=== PATIENT | female | born 1990 | race Caucasian/White ===

== ENCOUNTER 2020-09-29 16:00 | Emergency (ER) | payer SELFPAY ==
[2020-09-29 16:04] VITALS: BP 118/71; PULSE 63; RESP 18; TEMP 36.7; O2SAT 100
[2020-09-29] MEDS: IBUPROFEN 600 MG TABLET PO (17:09)
--- NOTE | 2020-09-29 17:45 | ED.GENADULT ---
HPI - General Adult General Chief complaint: Unspecified Stated complaint: Possible Implant Rupture Time Seen by Provider: 09/29/20 16:25 Source: patient and RN notes reviewed Mode of arrival: ambulatory Limitations: no limitations History of Present Illness HPI narrative: Patient is a 29-year-old female who presents with 2 days duration of left lateral breast pain started along the left breast margin now notes pain throughout the breast denies injury or trauma notes history of breast implants does sleep on her abdomen patient had the implants installed in 2016 patient denies any URI symptoms fever chills nausea vomiting presents in no distress has not take anything for her symptoms Related Data Home Medications Medication Instructions Recorded Confirmed alprazolam [Xanax] 09/29/20 fluoxetine [Prozac] mg 09/29/20 lamotrigine [Lamictal] 09/29/20 Allergies Allergy/AdvReac Type Severity Reaction Status Date / Time No Known Allergies Allergy Verified 09/29/20 16:21 Review of Systems Review of Systems: All systems reviewed & are unremarkable except as noted in HPI and below PMFSH Past Medical History Medical History (Updated 09/29/20 @ 17:49 by He Coronado PA-C) Anxiety Surgical History Surgical History (Updated 09/29/20 @ 17:46 by He Coronado PA-C) H/O breast augmentation Exam Narrative: Exam Narrative: GENERAL: Well-appearing, well-nourished, and in no acute distress. HEAD: Normocephalic, atraumatic. EYES: PERRLA and EOMI. ENT: Nares clear, no rhinorrhea or epistaxis. Mucous membranes moist. CHEST: Clear to auscultation. No respiratory distress. No wheezes rales or rhonchi HEART: Regular rate and rhythm. No murmur heard. BREAST: Tenderness of the left lateral breast no deformities noted no erythema no fluctuance EXTREMITIES: Normal range of motion. No edema. SKIN: Warm, dry, no rash. NEURO: No focal deficits. Alert and oriented x3. Cranial nerves II through XII grossly intact PSYCH: Normal mood and affect. Course Course Emergency Course: Patient in the room in no distress aware of case findings treatment plan and diagnosis. Patient in the room in no distress aware of case findings treatment plan and diagnosis agreeing to follow with breast surgeon Consultations Consultation #1: Discussed case with plastic surgeon Dr. Menchaca who will follow patient in clinic Date: 09/29/20 Time: 17:47 Vital Signs Vital signs: Vital Signs Temperature 98.1 F 09/29/20 16:04 Pulse Rate 63 09/29/20 16:04 Respiratory Rate 18 09/29/20 16:04 Blood Pressure 118/71 09/29/20 16:04 Pulse Oximetry 100 09/29/20 16:04 Temperature 98.1 F 09/29/20 16:04 Pulse Rate 63 09/29/20 16:04 Respiratory Rate 18 09/29/20 16:04 Blood Pressure 118/71 09/29/20 16:04 Pulse Oximetry 100 09/29/20 16:04 Medical Decision Making MDM Narrative Medical decision making narrative: Patient presented with breast pain will be referred to plastic surgery provided with reasons to return Vital Signs Vital Signs: Vital Signs Temperature 98.1 F 09/29/20 16:04 Pulse Rate 63 09/29/20 16:04 Respiratory Rate 18 09/29/20 16:04 Blood Pressure 118/71 09/29/20 16:04 Pulse Oximetry 100 09/29/20 16:04 Temperature 98.1 F 09/29/20 16:04 Pulse Rate 63 09/29/20 16:04 Respiratory Rate 18 09/29/20 16:04 Blood Pressure 118/71 09/29/20 16:04 Pulse Oximetry 100 09/29/20 16:04 Discharge Plan Discharge Clinical Impression: Breast pain, left Patient Disposition: Home, Self-Care Condition: Stable Instructions: Antibiotic Form Additional Instructions: Follow-up with breast surgeon by phone tomorrow to set up for reevaluation Cool compresses for symptom relief Return if symptoms worsen or concerns or any increase in redness swelling pain fever over 100.5 or any nausea or vomiting or difficulty breathing Prescriptions: New ibuprofen [IBU] 600 mg tablet 600
[2020-09-29 18:27] VITALS: BP 121/84; PULSE 67; RESP 16; O2SAT 100
== END 2020-09-29 18:29 | disposition home or self-care (01) ==
PROVIDERS: Emergency Provider Emergency Medicine
DX: N64.4 Mastodynia (principal); F41.9 Anxiety disorder, unspecified
CPT/HCPCS: 99283; A9270

== ENCOUNTER 2021-01-03 09:49 | Emergency (ER) | payer SELFPAY ==
--- NOTE | ~2021-01-03 | CT_ITS ---
EXAMINATION: CT soft tissue neck w con DATE: 01/03/2021 12:51 INDICATION: Dysphagia. TECHNIQUE: Computed tomography (CT) of the neck was performed with 75 mL Omnipaque-350 intravenous co ntrast. Automated exposure control and iterative reconstruction technique were employed. The dose-andrea gth product was 282.88 mGy-cm. COMPARISON: Neck CT 04/03/2014 FINDINGS: There is mild emphysema. There is enlargement of the palatine tonsils with heterogeneous at tenuation. There are no pathologically enlarged lymph nodes. The cervical internal carotid arteries a re normal. There is a trace left mastoid effusion. The paranasal sinuses are clear. IMPRESSION: 1. Enlarged palatine tonsils with heterogeneous attenuation, consistent with phlegmon. No drainable a bscess. 2. Mild emphysema. Reviewed, dictated and finalized at location A. IMPRESSION: 1. Enlarged palatine tonsils with heterogeneous attenuation, consistent with ph legmon. No drainable abscess. 2. Mild emphysema.
--- NOTE | ~2021-01-03 | XR_ITS ---
EXAMINATION: XR chest 1V EXAM DATE: 01/03/2021 15:50 INDICATION: Medial chest pain, Had Positive Strep Test Last Sunday . TECHNIQUE: Frontal and lateral projections of the chest obtained and reviewed. There is no prior yevgeniy dy for comparison. FINDINGS: The lungs are clear. There are no pleural effusions. The cardiomediastinal silhouette is within normal limits. There is no pneumothorax suspected. The bones and soft tissues are unremarkab le. Contrast within renal collecting system. IMPRESSION: Normal chest x-ray exam. Reviewed, dictated and finalized at location B. IMPRESSION: Normal chest x-ray exam.
[2021-01-03 10:52] VITALS: BP 136/87; PULSE 100; RESP 20; TEMP 36.6; O2SAT 100
--- NOTE | 2021-01-03 10:53 | ED.GENADULT ---
HPI - General Adult General Chief complaint: Unspecified Stated complaint: Strep Throat not improving Time Seen by Provider: 01/03/21 10:44 History of Present Illness HPI narrative: Patient is a 30-year-old female otherwise healthy who comes into the ED today complaining of a sore throat. Patient reports that symptoms started last week, she was seen at urgent care and was diagnosed with strep throat clinically (not get tested) was started on Augmentin which she has been compliant with. However symptoms seem to be worsening and she is having significant pain with swallowing since yesterday, pain with opening her mouth, seems like her voice is changed since yesterday. She denies any fevers but admits to chills and feeling lightheaded. Related Data Home Medications Medication Instructions Recorded Confirmed alprazolam [Xanax] 09/29/20 fluoxetine [Prozac] mg 09/29/20 lamotrigine [Lamictal] 09/29/20 amoxicillin-pot clavulanate 1 tablet BID 01/03/21 Allergies Allergy/AdvReac Type Severity Reaction Status Date / Time No Known Allergies Allergy Verified 01/03/21 10:36 Review of Systems Constitutional: Constitutional: Reports as per HPI, Denies fever(s), Denies night sweats and Denies weakness ENT: Reports sore throat Comments: See HPI Cardiovascular: Cardiovascular: Denies chest pain, Denies edema, Denies leg edema, Denies dyspnea and Denies orthopnea Respiratory: Respiratory: Denies cough and Denies dyspnea Gastrointestinal: Gastrointestinal: Denies abdominal pain, Denies constipation, Denies diarrhea, Denies nausea and Denies vomiting Musculoskeletal: Musculoskeletal: Denies abnormal gait, Denies back pain, Denies numbness and Denies tingling Neurologic: Denies Abnormal speech present, Denies abnormal gait, Denies numbness, Denies tingling and Denies weakness Psychiatric: Psychiatric: Denies homicidal ideation and Denies suicidal ideation [facility] Past Medical History Medical History (Updated 01/03/21 @ 18:39 by Emery Sears PA-C) Anxiety Surgical History Surgical History (Updated 09/29/20 @ 17:46 by He Coronado PA-C) H/O breast augmentation Exam Const: General: cooperative, healthy appearing, comfortable, no acute distress, well developed, alert, awake and Physically active Orientation/consciousness: patient oriented x3 HENMT: Head: normal to inspection, normocephalic and atraumatic Ears: external ears normal General nose exam: Normal external nose present Mouth: Yes Normal oral and palatal mucosa present Teeth and gingiva: dentition normal Throat: uvula midline, abnormal tonsil (2+ tonsillar edema bilaterally with exudates) bilateral, uvula not displaced and uvular edema (Very minimal uvular edema) Other: Tender anterior cervical lymphadenopathy bilaterally. No submental edema or tenderness, floor of mouth is soft with no edema/induration and no tongue elevation. Peritonsillar edema around the left tonsil. Uvula midline. Eyes: Pupils: Equal, round and reactive pupils present EOM: EOMs intact bilaterally Neck: Neck: full ROM, lymphadenopathy noted and lymphadenopathy Chest: Chest palpation & inspection: normal inspection of the chest and no tenderness Resp: Effort & Inspection: normal respiratory effort and able to speak in complete sentences Auscultation: clear to auscultation bilaterally Cardio: Rate: regular rate Rhythm: regular rhythm GI: Inspection: normal to inspection GI Palp: No abdominal tenderness : General: Yes no CVA tenderness Back/Spine/Pelvis: Back: no CVA tenderness Skin: General skin exam: normal color and no rashes or lesions noted Lesions: no lesions Neuro: General: patient oriented x3, no focal motor deficits and CN's II-XI intact bilaterally Cranial nerves: Yes Equal, round and reactive pupils present Speech: No Abnormal speech present Extrem: General: normal to inspection and full ROM Psych: Appearance: grossly normal and well kempt M
[2021-01-03] MEDS: LACTATED RINGERS 1,000 ML 999 ML IV CONT (12:05)
[2021-01-03] MEDS: KETOROLAC 15 MG/ML VIAL (*BKC) IV PUSH ×2 (12:05→17:47)
[2021-01-03] MEDS: LIDOCAINE HCL 2% VISC SOLN 15 ML UDC PO (12:06)
[2021-01-03 12:21] LABS: Basophils Absolute Auto 0.1 K/mm3 (0.0-0.1); Basophils Percent Auto 0.3 % (0.2-1.2); Hematocrit 40.6 % (37.0-47.0); Immature Granulocyte Absolute 0.15 K/mm3 (0.00-0.031); Immature Granulocyte Percent A 0.7 % (0-0.5); Lymphocytes Absolute Auto 0.89 K/mm3 (0.9-3.2); Lymphocytes Percent Auto 3.9 % (18.3-44.2); Mean Corpuscular Hemoglobin 28.7 pg (26-34); Mean Corpuscular Volume 89.6 fl (80-100); Mean Platelet Volume 9.7 fl (7.4-10.4); Monocytes Absolute Auto 1.8 K/mm3 (0.1-0.6); Monocytes Percent Auto 7.9 % (2.6-8.5); Neutrophils Percent Auto 87.2 % (45.5-73.1); Platelet Count Result 267 k/mm3 (150-375); Red Blood Count 4.53 M/mm3 (4.2-5.4); Red Cell Distribution Width 14.2 % (11.5-14.5); White Blood Count 22.9 K/mm3 (4.5-10.0)
[2021-01-03 12:36] LABS: Alanine Aminotransferase 16 U/L (4-35); Albumin Level 4.4 g/dL (3.5-5.1); Alkaline Phosphatase 58 U/L (38-126); Anion Gap 10 mmol/L (8-16); Aspartate Amino Transferase 29 U/L (14-36); Bilirubin,Total 0.5 mg/dL (0.2-1.3); Blood Urea Nitrogen 12 mg/dL (7-17); Calcium 9.1 mg/dL (8.4-10.2); Carbon Dioxide 23 mmol/L (22-30); Chloride 104 mmol/L (98-107); Estimated CRCL calculation 100 ml/min; Estimated Glomerular Filt Rate > 60; Glucose 101 mg/dL (65-110); Potassium 4.3 mmol/L (3.4-5.0); Sodium 137 mmol/L (137-145)
[2021-01-03] MEDS: ONDANSETRON INJ 4 MG/2 ML VIAL IV PUSH (13:51)
[2021-01-03] MEDS: MORPHINE SULFATE (*CRX) 4 MG/ML INJ IV PUSH (13:51)
[2021-01-03 14:02] LABS: Lactic Acid Reflex 0.6 mmol/L (0.7-2.1)
--- NOTE | 2021-01-03 15:22 | ECG_ITS ---
Measurements Intervals [place] Rate: 71 P: 9 [place]: 141 QRS: 14 QRSD: 98 T: 54 QT: 376 QTc: 410 Interpretive Statements SINUS RHYTHM INCOMPLETE RIGHT BUNDLE BRANCH BLOCK BORDERLINE ECG Electronically Signed On 01-03-2021 15:33:46 CDT by Dakota Alejandro D.O.
--- NOTE | 2021-01-03 15:22 | PC.NURSE ---
Pt having sudden onset midsternal to left sided chest pain, EKG ordered per ADRIANA Sears.
[2021-01-03 15:26] LABS: Monoscreen Negative (Negative); Negative Monotest Control Negative (Negative); Positive Monotest Control Positive (Positive)
[2021-01-03 16:30] VITALS: BP 115/73; PULSE 76; RESP 20; TEMP 36.9; O2SAT 100
[2021-01-03] MEDS: LIDO 1%/EPINEPHRINE 1:100,000 20 ML VIAL (18:06)
--- NOTE | 2021-01-03 18:27 | WPDCN ---
Assessment and Plan Assessment and plan (1) Abscess, peritonsillar: Code(s): J36 - Peritonsillar abscess Status: Acute Assessment and Plan: Recommend discharging on a steroid taper, following up with me in two weeks given multiple throat infections for years, consider switching from augmentin to clindamycin, pt advised to re present in ER with any worsening. She should feel better withing 24-48 hours. HPI Data of Consult Date/Time: 01/03/21 18:27 Primary Care Provider: [employer] Consult Narrative Narrative: Jeni Rodriguez is a 30 year old female with a history of sore throat. CT demonstrates obvious tonsillitis. Per my read left sided luis tonsillar process. Pt on augmentin x3 days with worsening. WBC elevated. Review of Systems Constitutional: Constitutional: Denies fatigue, Denies fever(s) and Denies lethargy Eyes: Eyes: Denies blurry vision and Denies change in vision ENT: Reports as per HPI Cardiovascular: Cardiovascular: Denies chest pain Respiratory: Respiratory: Denies cough Endocrine: Endocrine: Denies fatigue Hematologic/Lymphatic: Hematologic/Lymphatic: Denies easy bleeding, Denies easy bruising and Denies lymphadenopathy Allergic/Immunologic: Allergic/Immunologic: Denies seasonal rhinorrhea [facility] Past Medical History Medical History (Updated 01/03/21 @ 18:34 by Chemo Kent MD) Anxiety Surgical History Surgical History (Updated 09/29/20 @ 17:46 by He Coronado PA-C) H/O breast augmentation Meds Home Medications and Allergies Home Medications Medication Instructions Recorded Confirmed Type alprazolam [Xanax] 09/29/20 History fluoxetine [Prozac] mg 09/29/20 History ibuprofen [IBU] 600 mg PO TID PRN #7 tablet 09/29/20 Rx lamotrigine [Lamictal] 09/29/20 History amoxicillin-pot clavulanate 1 tablet BID 01/03/21 History Allergies Allergy/AdvReac Type Severity Reaction Status Date / Time No Known Allergies Allergy Verified 01/03/21 10:36 Vital Signs Vital Signs - 24 hr 01/03/21 10:52 01/03/21 16:30 Temperature 36.6 C 36.9 C Pulse Rate 100 76 Respiratory Rate 20 20 Blood Pressure 136/87 115/73 Pulse Oximetry 100 100 Exam Const: General: cooperative, healthy appearing, comfortable, well developed and alert Other: exudates, 3+, left peritonsillar edema HENMT: Head: normal to inspection, normocephalic and atraumatic Ears: hearing grossly normal bilaterally, external ears normal, TM's normal bilaterally and EAC's normal General nose exam: Normal external nose present, Normal nares present, No nasal polyps present, Normal nasal mucous membranes and turbinates present and Normal septum present Face and sinus: normal facial exam Mouth: Yes Normal oral and palatal mucosa present, Yes lip normal, Yes tongue normal, Yes oropharynx normal and Yes moist mucous membranes Teeth and gingiva: dentition normal and gingiva normal Throat: posterior oropharynx abnormal, tonisls abnormal and uvula not midline Eyes: General: appearance normal, both eyes and all related structures Periorbital: periorbital findings normal Eyelids: eyelids normal Conjunctivae: conjunctivae normal Sclera: sclerae normal Neck: Neck: normal visual inspection, full ROM and no lymphadenopathy Thyroid: thyroid normal Lymphatic: no lymphadenopathy noted Resp: Effort & Inspection: normal respiratory effort and able to speak in complete sentences Cardio: Jugular venous distension: no JVD Neuro: Cranial nerves: Yes CN's II-XII intact bilaterally Results Labs CBC & Chem 7: 01/03/21 12:07 01/03/21 12:07 Labs: Short CBC 01/03/21 Range/Units 12:07 WBC 22.9 H (4.5-10.0) K/mm3 Hgb 13.0 (12.0-15.0) g/dL Hct 40.6 (37.0-47.0) % Plt Count 267 (150-375) k/mm3 [facility] 01/03/21 12:07 Sodium 137 Potassium 4.3 Chloride 104 Carbon Dioxide 23 BUN 12 Creatinine 0.70 Glucose 101 Calcium 9.1 Liver Funct
--- NOTE | 2021-01-03 18:37 | WPDPROCEDUR ---
Procedures Abscess I/D Site: oral (bilateral luis tonsillar) Side (if applicable): left and right Anesthetic used: lidocaine 1% (with) Technique: needle aspiration and incised with #11 blade Amount of fluid (mL): 2 Irrigation: No Packing used?: none Complications: pain Comments: left purulence and stones in the peritonsillar space, right with scant turbid fluid
[2021-01-03] MEDS: oxyCODONE/ACETAMINOPHEN (*CRX) 5-325 MG TABLET 2 TABLET PO (18:48)
[2021-01-03 19:09] VITALS: BP 123/70; PULSE 78; RESP 18; O2SAT 99
== END 2021-01-03 19:10 | disposition home or self-care (01) ==
PROVIDERS: Physician Assistant Medical; Emergency Provider Emergency Medicine
DX: J36 Peritonsillar abscess (principal); F41.9 Anxiety disorder, unspecified
CPT/HCPCS: 36415; 42700; 70491; 71045; 80053; 81025; 83605; 85025; 86308; 87081; 87880; 93005; 96361; 96365; 96375; 96376; 99284; A9270; J0696; J1100; J1885; J2270; J2405; J7120; Q9967

== ENCOUNTER 2023-01-23 11:09 | Emergency (ER) | payer MEDICAID, SELFPAY ==
--- NOTE | ~2023-01-23 | CT_ITS ---
EXAMINATION: CT abdomen pelvis w con DATE: 01/23/2023 14:03 INDICATION: Abdominal pain. Elevated liver function tests. TECHNIQUE: Computed tomography (CT) of the abdomen and pelvis was performed with 100 cc Omnipaque 350 intravenous contrast. The dose-length product was 188.12 mGy-cm. Automated exposure control and iterative reconstruction technique were employed. COMPARISON: None. FINDINGS: Lung bases unremarkable. Heart size normal. There are breast implants. No significant pleur al or pericardial effusion. No significant vascular abnormality. No lymphadenopathy. No free air or f ree fluid. Gallbladder not identified, possibly surgically absent. There is mild prominence of the bi le ducts. The spleen, pancreas, adrenal glands and kidneys are unremarkable. Nonobstructive bowel pat tern. No abnormal pelvic masses or fluid collections. IMPRESSION: 1. Mild prominence of the bile ducts, likely secondary to prior cholecystectomy. Clinically correlate . No obstructing stone or mass identified. Reviewed, dictated and finalized at location L. IMPRESSION: 1. Mild prominence of the bile ducts, likely secondary to prior cholecystectomy . Clinically correlate. No obstructing stone or mass identified.
[2023-01-23 11:11] VITALS: BP 135/75; PULSE 72; RESP 20; TEMP 36.7; O2SAT 98
[2023-01-23 12:22] LABS: Basophils Percent Auto 0.4 % (0.2-1.2); Eosinophils Percent Auto 0.2 % (0-4.4); Hematocrit 38.2 % (37.0-47.0); Hemoglobin 12.3 g/dL (12.0-15.0); Immature Granulocyte Absolute 0.02 K/mm3 (0.00-0.031); Immature Granulocyte Percent A 0.2 % (0-0.5); Lymphocytes Absolute Auto 1.31 K/mm3 (0.9-3.2); Lymphocytes Percent Auto 14.4 % (18.3-44.2); Mean Corpuscular HGB Conc 32.2 g/dl (32-36); Mean Corpuscular Hemoglobin 27.8 pg (26-34); Mean Corpuscular Volume 86.2 fl (80-100); Mean Platelet Volume 9.2 fl (7.4-10.4); Monocytes Absolute Auto 0.7 K/mm3 (0.1-0.6); Monocytes Percent Auto 7.1 % (2.6-8.5); Neutrophils Absolute Auto 7.1 K/mm3 (1.3-6.7); Neutrophils Percent Auto 77.7 % (45.5-73.1); Platelet Count Result 299 k/mm3 (150-375); Red Blood Count 4.43 M/mm3 (4.2-5.4); Red Cell Distribution Width 13.2 % (11.5-14.5); White Blood Count 9.1 K/mm3 (4.5-10.0)
[2023-01-23 12:23] LABS: Appearance Urine Clear (Clear); Bilirubin Urine Negative (Negative); Blood Urine 1+ (Negative); Color Urine Yellow (Yellow); Glucose Urine UA Negative (Negative); Ketones Urine Negative (Negative); Leukocyte Esterase Ur Negative LEU/UL (Negative); Nitrate Urine Negative (Negative); Protein Urine Negative (Negative); Urobilinogen Urine 0.2 mg/dL (<2.0); pH Urine 7.5 (5.0-9.0)
[2023-01-23 12:29] LABS: Bacteria Urine None Seen /hpf; Non Pathogenic Casts 0-2; RBC Urine 0-2 /hpf (0-2); Squamous Epithelial Cell Urine None seen /hpf (Few); WBC Urine 0-5 /hpf
[2023-01-23 12:31] LABS: Alanine Aminotransferase 258 U/L (6-35); Albumin Level 4.2 g/dL (3.5-5.1); Alkaline Phosphatase 70 U/L (38-126); Anion Gap 6 mmol/L (8-16); Aspartate Amino Transferase 438 U/L (14-36); Bilirubin,Total 0.9 mg/dL (0.2-1.3); Blood Urea Nitrogen 9 mg/dL (7-17); Calcium 8.9 mg/dL (8.4-10.2); Carbon Dioxide 27 mmol/L (22-30); Chloride 105 mmol/L (98-107); Estimated CRCL calculation 69 ml/min; Estimated Glomerular Filt Rate > 60; Glucose 91 mg/dL (65-110); Lipase 255 U/L (23-300); Sodium 138 mmol/L (137-145)
[2023-01-23 12:42] LABS: Add Urine Microscopic? YES
--- NOTE | 2023-01-23 13:24 | ED.ABDPAIN ---
HPI - Abdominal Pain General Chief Complaint: Abdominal Pain Stated Complaint: abd pain Time Seen by Provider: 01/23/23 12:57 History of Present Illness HPI narrative: Patient is a 32-year-old female s/p cholecystectomy 2 years ago here with abdominal pain. She notes that she has had some nausea and decreased appetite over the last 1 week. Last night around 3:00 a.m. the morning she was woken up from her sleep for upper abdominal pain. She notes that it seems to radiate up into her chest and associated with nausea and a couple episodes of emesis. She notes that she has had no blood in her vomit. She notes diaphoresis when she was vomiting however denies any fever. She denies any urinary symptoms or vaginal discharge. She is currently on her menstrual cycle. She denies any cough or congestion. No prior cardiac history. Related Data Home Medications Medication Instructions Recorded Confirmed alprazolam 0.25 mg tablet (Xanax) 09/29/20 fluoxetine 40 mg capsule (Prozac) mg 09/29/20 lamotrigine 200 mg tablet 09/29/20 (Lamictal) amoxicillin 875 mg-potassium 1 tablet BID 01/03/21 clavulanate 125 mg tablet Allergies Allergy/AdvReac Type Severity Reaction Status Date / Time No Known Allergies Allergy Verified 01/03/21 10:36 Review of Systems Review of Systems: All systems reviewed & are unremarkable except as noted in HPI and below PMFSH Past Medical History Medical History (Updated 01/23/23 @ 14:22 by Margie Garcia MD) Anxiety Surgical History Surgical History (Updated 09/29/20 @ 17:46 by He Coronado, PAJerilyn) H/O breast augmentation Exam Narrative: GENERAL: Well-appearing, well-nourished, and in no acute distress. HEAD: Normocephalic, atraumatic. EYES: PERRLA and EOMI. ENT: Nares clear. Mucous membranes moist. NECK: Supple. CHEST: Clear to auscultation. No respiratory distress. HEART: Regular rate and rhythm. Normal peripheral pulses. ABDOMEN: Soft, Epigastric tenderness with voluntary guarding, no rebound. Negative joel's sign, no McBurney tenderness. nondistended. EXTREMITIES: Normal range of motion. No edema. SKIN: Warm, dry, no rash. NEURO: No focal deficits. Alert and oriented x3. PSYCH: Normal mood and affect. Course Course Emergency Course: Chart review performed. Patient here for upper abdominal pain, nausea and vomiting. Triage vitals normal. Triage lab work shows no leukocytosis, elevated LFTs. Will order CT abdomen pelvis, pepcid, antiemetics, IVF. CT consistent with status post cholecystectomy, no other finding. Will add on hepatitis panel however elevated LFTs could be attributed to her episodes of emesis. EKG has additionally been ordered. No cardiac risk factors. I do not feel any further cardiac workup is indicated. Anticipate discharge. Patient has had symptom resolution with GI cocktail. Will prescribe Carafate, Protonix, Zofran and refer her to Dr. Reinoso's office for follow up. The results of pertinent diagnostic studies and exam findings were discussed. The patient?s provisional diagnosis and plan of care were discussed with the patient and present family. The patient and/or present family expressed understanding of the diagnosis and plan. The nurse was instructed to provide written instructions and appropriate follow-up information. The patient understands their need and responsibility to obtain additional follow-up as instructed. The risks of medications administered and prescribed were discussed with the patient and family present. Vital Signs Vital signs: Vital Signs Temperature 98.1 F 01/23/23 11:11 Pulse Rate 72 01/23/23 11:11 Respiratory Rate 20 01/23/23 11:11 Blood Pressure 135/75 01/23/23 11:11 Pulse Oximetry 98 01/23/23 11:11 Oxygen Delivery Room Air 01/23/23 11:11 Temperature 98.3 F 01/23/23 17:17 Pulse Rate 55 L 01/23/23 17:17 Respiratory Rate 18 01/23/23 17:17 Blood Pressure
[2023-01-23] MEDS: ONDANSETRON INJ 4 MG/2 ML VIAL IV PUSH (13:51)
[2023-01-23] MEDS: SODIUM CHLORIDE 0.9% IV 1,000 ML 999 ML IV CONT (13:51)
[2023-01-23] MEDS: PANTOPRAZOLE SODIUM IV 40 MG VIAL IV PUSH (13:51)
--- NOTE | 2023-01-23 14:19 | ECG_ITS ---
Measurements Intervals [place] Rate: 50 P: 36 [place]: 142 QRS: -4 QRSD: 88 T: 37 QT: 432 QTc: 397 Interpretive Statements SINUS BRADYCARDIA WITH SINUS ARRHYTHMIA LOW QRS VOLTAGE IN PRECORDIAL LEADS [QRS DEFLECTION < 1.0 mV IN CHEST LEADS] COMPARED TO ECG 01/03/2021 15:25:21 SINUS BRADYCARDIA NOW PRESENT SINUS ARRHYTHMIA NOW PRESENT Electronically Signed On 01-23-2023 16:36:28 CDT by Arlene Bah M.D.
[2023-01-23] MEDS: BELLADONNA ALK/PHENOB ELIX 10 ML, MAG HYDROX/ALUMINUM HYD/SIMETH 30 ML, LIDOCAINE HCL 2... PO (15:49)
[2023-01-23] MEDS: MORPHINE SULFATE (*CRX) 4 MG/ML INJ IV PUSH (15:50)
[2023-01-23 16:45] LABS: Hepatitis B Surface Antigen Negative (Negative)
[2023-01-23 16:50] LABS: HAV RESULT Negative (Negative); Hepatitis B Core IgM Result Negative (Negative)
[2023-01-23 17:02] LABS: Hepatitis C Virus Antibody Negative (Negative)
[2023-01-23 17:17] VITALS: BP 120/88; PULSE 55; RESP 18; TEMP 36.8; O2SAT 98
== END 2023-01-23 17:33 | disposition home or self-care (01) ==
PROVIDERS: Emergency Medicine; Emergency Provider Student in an Organized Health Care Education/Training Program
DX: R10.13 Epigastric pain (principal); R74.01 Elevation of levels of liver transaminase levels; F41.9 Anxiety disorder, unspecified; Z90.49 Acquired absence of other specified parts of digestive tract; R00.1 Bradycardia, unspecified
CPT/HCPCS: 36415; 74177; 80053; 80074; 81001; 81025; 83690; 85025; 93005; 96361; 96374; 96375; 99284; A9270; C9113; J2270; J2405; J7030; Q9967

== ENCOUNTER 2023-01-30 10:25 | Outpatient (CLI) | payer MEDICAID, SELFPAY ==
[2023-01-30 11:26] LABS: Alanine Aminotransferase 85 U/L (6-35); Albumin Level 4.6 g/dL (3.5-5.1); Alkaline Phosphatase 57 U/L (38-126); Anion Gap 8 mmol/L (8-16); Aspartate Amino Transferase 23 U/L (14-36); Bilirubin,Total 0.6 mg/dL (0.2-1.3); Blood Urea Nitrogen 15 mg/dL (7-17); Calcium 9.3 mg/dL (8.4-10.2); Carbon Dioxide 27 mmol/L (22-30); Chloride 101 mmol/L (98-107); Cholesterol 166 mg/dL (0-200); Estimated Glomerular Filt Rate > 60; Glucose 99 mg/dL (65-110); HDL Direct 51 mg/dL; Potassium 3.9 mmol/L (3.4-5.0); Sodium 136 mmol/L (137-145); Triglycerides 41 mg/dL (<150)
[2023-01-30 11:37] LABS: LDL Cholesterol Direct 91 mg/dL
[2023-01-30 11:55] LABS: Thyroid Stimulating Hormone 0.642 uIU/mL (0.465-4.680)
[2023-01-30 12:06] LABS: Free T4 Free Thyroxine 1.28 ng/mL (0.78-2.19)
[2023-01-30 15:13] LABS: Appearance Urine Cloudy (Clear); Bacteria Urine 1+ /hpf; Bilirubin Urine Negative (Negative); Blood Urine Negative (Negative); Color Urine Yellow (Yellow); Glucose Urine UA Negative (Negative); Ketones Urine 1+ mg/dL (Negative); Leukocyte Esterase Ur Negative LEU/UL (NEGATIVE); Nitrate Urine Negative (Negative); Non Pathogenic Casts 0-2; Protein Urine Negative (Negative); RBC Urine 0-2 /hpf (0-2); Specific Grav Ur 1.022 (1.001-1.035); Squamous Epithelial Cell Urine Moderate /hpf (Few); Urobilinogen Urine 0.2 mg/dL (<2.0)
[2023-01-30 15:34] LABS: Add Urine Microscopic? YES
== END 2023-01-30 10:26 | disposition home or self-care (01) ==
PROVIDERS: Visit Provider Emergency Medicine
DX: R10.9 Unspecified abdominal pain (principal); F32.9 Major depressive disorder, single episode, unspecified; R94.5 Abnormal results of liver function studies
CPT/HCPCS: 36415; 80053; 80061; 81001; 82306; 84439; 84443

== ENCOUNTER 2023-05-25 09:42 | Emergency (ER) | payer MEDICAID, SELFPAY ==
--- NOTE | ~2023-05-25 | XR_ITS ---
EXAMINATION: XR chest 2V DATE: 05/25/2023 10:34 INDICATION: Shortness of breath and cough TECHNIQUE: PA and lateral views of the chest are obtained. COMPARISON: 01/03/2021 FINDINGS: The lungs are free of acute opacities. No pleural effusion or pneumothorax. The cardiomedia stinal silhouette is normal. The visualized bones are unremarkable. There are bilateral breast implan ts. IMPRESSION: 1. No acute cardiopulmonary abnormality. Reviewed, dictated and finalized at location B. [facility]
--- NOTE | 2023-05-25 09:43 | ECG_ITS ---
Measurements Intervals [place] Rate: 102 P: 74 [place]: 129 QRS: 5 QRSD: 80 T: 57 QT: 328 QTc: 428 Interpretive Statements SINUS TACHYCARDIA POSSIBLE LEFT ATRIAL ENLARGEMENT [-0.1mV P WAVE IN V1/V2] POSSIBLE RIGHT VENTRICULAR CONDUCTION DELAY [RSR (QR) IN V1/V2] NONSPECIFIC ST AND T-WAVE ABNORMALITY ABNORMAL ECG COMPARED TO ECG 01/23/2023 15:24:13 SINUS TACHYCARDIA NOW PRESENT Electronically Signed On 05-26-2023 10:16:43 [employer] by Beni Marcelino M.D.
[2023-05-25 09:50] VITALS: BP 123/78; PULSE 104; TEMP 36.6
[2023-05-25 09:53] VITALS: PULSE 105; RESP 18; O2SAT 99
[2023-05-25 10:07] LABS: Hematocrit 43.1 % (37.0-47.0); Hemoglobin 13.5 g/dL (12.0-15.0); Mean Corpuscular HGB Conc 31.3 g/dl (32-36); Mean Corpuscular Hemoglobin 26.8 pg (26-34); Mean Corpuscular Volume 85.5 fl (80-100); Mean Platelet Volume 9.7 fl (7.4-10.4); Platelet Count Result 196 k/mm3 (150-375); Red Blood Count 5.04 M/mm3 (4.2-5.4); Red Cell Distribution Width 13.5 % (11.5-14.5); White Blood Count 3.9 K/mm3 (4.5-10.0)
[2023-05-25 10:20] VITALS: O2SAT 99
[2023-05-25 10:21] LABS: Alanine Aminotransferase 25 U/L (6-35); Albumin Level 4.6 g/dL (3.5-5.1); Alkaline Phosphatase 60 U/L (38-126); Anion Gap 11 mmol/L (8-16); Aspartate Amino Transferase 33 U/L (14-36); Bilirubin,Total 0.3 mg/dL (0.2-1.3); Blood Urea Nitrogen 6 mg/dL (7-17); Calcium 9.5 mg/dL (8.4-10.2); Carbon Dioxide 23 mmol/L (22-30); Chloride 106 mmol/L (98-107); Estimated CRCL calculation 78 ml/min; Estimated Glomerular Filt Rate > 60; Glucose 108 mg/dL (65-110); Potassium 3.9 mmol/L (3.4-5.0); Sodium 140 mmol/L (137-145)
[2023-05-25 10:24] VITALS: BP 124/88; PULSE 104; PULSE 88; RESP 19; O2SAT 100
[2023-05-25 10:38] LABS: Atypical Lymphocytes Present; Band Neutrophils Percent 1 % (0-6); Basophils Absolute Manual 0.03 K/mm3 (0.0-0.1); Basophils Percent Manual 1 % (0-1); Lymphocytes Absolute Manual 1.67 K/mm3 (1.1-4.5); Monocytes Absolute Manual 0.78 K/mm3 (0.1-0.90); Monocytes Percent Manual 20 % (3-9); Neutrophils Percent Manual 35 % (46-73); Platelet Estimate Adequate (Adequate); Schistocytes None Seen (NORMAL); Total Cells Counted 100
[2023-05-25 10:43] LABS: Influenza A QL RT-PCR Negative (Negative); Influenza B QL RT-PCR Positive (Negative); RSV RNA, RT-PCR Negative (Negative); SARS-CoV-2 RNA PCR Negative (Negative)
[2023-05-25 11:09] VITALS: BP 116/84; PULSE 88; RESP 28; O2SAT 100
[2023-05-25 12:01] VITALS: BP 104/73; PULSE 88; RESP 26; TEMP 37.2; O2SAT 98
--- NOTE | 2023-05-25 12:25 | ED.SOB ---
HPI - SOB/Dyspnea General Chief Complaint: Shortness of Breath/Dyspnea Stated Complaint: headache, congestion, congestion Time Seen by Provider: 05/25/23 11:40 Source: patient Mode of arrival: ambulatory Limitations: no limitations History of Present Illness HPI Narrative: This is a 32-year-old female that presents to the emergency department for chest congestion. Reports she was seen at urgent care about a week ago and diagnosed with strep throat. She has been taking antibiotics as prescribed. Starting on Sunday she developed fever, headache, chest congestion. Reports some associated shortness of breath. Denies chest pain or lower extremity edema. Related Data Home Medications Medication Instructions Recorded Confirmed alprazolam 0.25 mg tablet (Xanax) 09/29/20 fluoxetine 40 mg capsule (Prozac) mg 09/29/20 lamotrigine 200 mg tablet 09/29/20 (Lamictal) amoxicillin 875 mg-potassium 1 tablet BID 01/03/21 clavulanate 125 mg tablet Allergies Allergy/AdvReac Type Severity Reaction Status Date / Time No Known Allergies Allergy Verified 01/03/21 10:36 Review of Systems Review of Systems: CONSTITUTIONAL: Reports fever ENT: Reports rhinorrhea, congestion, sore throat CARDIOVASCULAR: Denies chest pain, or edema. RESPIRATORY: Reports cough and dyspnea. All systems reviewed & are unremarkable except as noted in HPI and below PMFSH Past Medical History Medical History (Updated 05/25/23 @ 12:26 by Ashleigh Moreno PA-C) Anxiety Surgical History Surgical History (Updated 09/29/20 @ 17:46 by He Coronado, JULIO CESAR) H/O breast augmentation Social History Social History (Updated 05/25/23 @ 12:29 by Ashleigh Moreno PA-C) Smoking status: Current every day smoker Tobacco type: e-cigarettes/vaping Substance use: current Substance use type: marijuana Exam Narrative: GENERAL: Well-appearing, well-nourished, and in no acute distress. HEAD: Normocephalic, atraumatic. EYES: EOMI. ENT: Nares clear, no rhinorrhea or epistaxis. Mucous membranes moist. Oropharynx without tonsillar hypertrophy exudate or other lesions. Bilateral TMs pearly hines non-bulging NECK: Supple. No adenopathy or masses. CHEST: Clear to auscultation. No respiratory distress. No wheezes rales or rhonchi HEART: Regular rate and rhythm. No murmur heard. Normal peripheral pulses. EXTREMITIES: Normal range of motion. No edema. SKIN: Warm, dry, no rash. NEURO: No focal deficits. Alert and oriented x3. PSYCH: Normal mood and affect Course Course Emergency Course: Patient updated on her workup. Agrees with plan of care. Resting comfortably Vital Signs Vital signs: Vital Signs Temperature 97.8 F 05/25/23 09:50 Pulse Rate 104 H 05/25/23 09:50 Blood Pressure 123/78 05/25/23 09:50 Temperature 97.8 F 05/25/23 09:50 Pulse Rate 88 05/25/23 10:24 Respiratory Rate 19 05/25/23 10:24 Blood Pressure 124/88 05/25/23 10:24 Pulse Oximetry 100 05/25/23 10:24 Oxygen Delivery Room Air 05/25/23 10:20 MDM - SOB/Dyspnea MDM Narrative Medical decision making narrative: Patient presents to the emergency department for viral symptoms present over the last week. Initially diagnosed with strep throat. Had worsening symptoms about 4 days ago with congestion, headache and fevers. She is afebrile in the ER and nontoxic appearing. Oxygen saturation is 100% on room air. Her lungs are clear on exam. CBC consistent with viral infection. Metabolic panel without concerning findings. Chest x-ray without acute cardiopulmonary abnormality. Patient is Influenza B positive. She was updated on her workup. She is out of the window for treatment with Tamiflu. Instructed on further symptomatic care viral infection. She is to follow up with her primary provider. She was given warnings to return to the ER Differential Diagnosis Differential diagnosis: Likely community acquired pneumonia and other (influenz
== END 2023-05-25 12:33 | disposition home or self-care (01) ==
PROVIDERS: Emergency Medicine; Emergency Provider Physician Assistant
DX: J10.1 Influenza due to other identified influenza virus with other respiratory manifestations (principal); Z20.822 Contact with and (suspected) exposure to COVID-19; F41.9 Anxiety disorder, unspecified; F17.290 Nicotine dependence, other tobacco product, uncomplicated
CPT/HCPCS: 36415; 71046; 80053; 85025; 87637; 93005; 99284

== ENCOUNTER 2024-05-25 11:19 | Emergency (ER) | payer OTHER, SELFPAY ==
--- OUTSIDE RECORDS SUMMARY | 2024-05-25 11:21 | XMS_ITS | Referral Summary ---
Author Organization [facility] Address [address] [place] [address] Care Team Providers Care Barking Machine Feeder Name Role Phone Unavailable Primary Care Provider Unavailabl e Source Comments [facility],non-owned Affiliates and Associated Physician Practices is amultiple site organization consisting of ambulatory clinics and hospital sitesin [place], [place], [place] and [place]. This disclosure is being madepursuant to the Care Everywhere program and may not contain all information available regarding this patient. Last updated 18.[facility] Allergies No known active allergies Medications * Be aware that medications may not be up to date on this document. Alwaysverify current medications with the patient. Medication Sig Dispensed Refills Start Date End Date Status FLUoxetine (PROZAC) 20 MG capsuleIndications :Major Depressive Disorder Take 1 capsule by mouth once daily Reasons: Major Depressive Disorder 30 capsule 1 02/25/2019 Active Additional Information Patient not taking.Reported on 01/05/2021 hydrOXYzine hcl (ATARAX) 25 MG tabletIndications: Anxiety Take 1 tablet by mouth every 6 hours as needed for Itching Reasons: Feeling Anxious 60 tablet 1 02/24/2019 Active Additional Information Patient not taking.Reported on 01/05/2021 nicotine polacrilex (NICORETTE) 2 MG gumIndications:Mic otine Dependence Take 1 Each by mouth as needed for Smoking Cessation - Gum should be slowly chewed until a peppery taste emerges, then parked between cheek and gum to facilitate nicotine absorption. - Avoid eating or drinking for 15 minutes before and during chewing gum. Reasons: Nicotine Addiction 40 Each 1 02/24/2019 Active Additional Information Patient not taking.Reported on 01/05/2021 venlafaxine (EFFEXOR) 100 MG tablet Take 150 mg by mouth once daily Active lamoTRIgine (LAMICTAL) 200 MG tablet Take 200 mg by mouth 2 times daily Active Active Problems Problem Noted Date Diagnosed Date Major depressive disorder 02/21/2019 Social History Tobacco Use Types Packs/Day Years Used Date Smoking Tobacco: Former Cigarettes 1 12 Smokeless Tobacco: Never Tobacco Cessation:Ready to Q uit: No; Counseling Given: Yes Alcohol Use Standard Drinks/Week Comments Yes 0 (1 standard drink = 0.6 oz pur e alcohol) occ Sex and Gender Information Value Date Recorded Sex Assigned at Not on file Gender Identity Not on file Sexual Orientation Not on file Last Filed Vital Signs Vital Sign Reading Time Taken Comments Blood Pressure 121/70 01/05/2021 12:25 PM CDT Pulse 66 01/05/2021 12:25 PM CDT Temperature 37.4 C (99.3 F) 01/05/2021 12:25 PM CDT Respiratory Rate 16 01/05/2021 12:25 PM CDT Oxygen Saturation 100% 01/05/2021 12:25 PM CDT Inhaled Oxygen Concentration - - Weight 56.2 kg (124 lb) 01/05/2021 8:35 AM CDT Height 157.5 cm (5' 2 ) 01/05/2021 8:35 AM CDT Body Mass Index 22.68 01/05/2021 8:35 AM CDT Functional Status Functional Status Response Date of Assess ment Is person deaf or have serious hearing difficult y? No 02/25/2019 Is person blind or have serious difficulty seein g? No 02/25/2019 Does person have serious dif ficulty walking/climbing stairs? No 02/25/2019 Does person have difficulty dressing/bathing? No 02/25/2019 Does person have difficulty doing errands alone? No 02/25/2019 Cognitive Status Response Date of Assessm ent Does person have difficulty concentrating/remembering/making decisions? No 02/25/2019 Plan of Treatment Not on file Advance Directives * Full Code (Latest Code Status on File) Date Activated Date Inactivated Comments 02/21/2019 10:25 PM 02/25/2019 11:36 AM
--- OUTSIDE RECORDS SUMMARY | 2024-05-25 11:21 | XMS_ITS | Clinical Summary ---
Author Organization [facility] Address [address] [place] [address] Care Team Providers Care Division Human Resources Manager Name Role Phone Loree Murray NP Primary Care Provider [phone] Allergies Active Allergy Reactions Criticality Noted Date Comments Hydrocodone-Acetaminophen Nausea and Vomiting Low 0 12/30/2019 Medications QUEtiapine (SEROQUEL) 100 MG tablet Take 1 tablet (100 mg total) by mouth nightly at bedtime. 08/31/19 24 Active diphenhydrAMIN E (BENADRYL) 50 MG Cap capsule Take 1 capsule (50 mg total) by mouth every 4 (four) hours as needed for Itching. Active ondansetron (ZOFRAN) 4 MG tablet Take 1 tablet (4 mg total) by mouth every 8 (eight) hours as needed for Nausea. 20 tablet 12/30/19 24 025 Discontinued(Pt . elected to discontinue med) oxyCODONE-acet aminophen (PERCOCET) 5-325 MG tabletIndicati ons:Acute Pain < 7 Day Supply Take 1 tablet by mouth every 4 (four) hours as needed for Pain. Indications : Acute Pain < 7 Day Supply 15 tablet 12/30/19 24 025 Discontinued Active Problems Problem Noted Date Diagnosed Date Major depressive disorder 02/21/2019 Closed fracture of wrist 09/11/2011 Encounters Date Type Department Care Team Description 05/01/2024 Telephone [facility] Family & Internal Medicine [facility] [id number] [place] [phone] Loree Murray NP Lab Results 04/30/2024 1:14 PM CORN [facility]ER - 04/30/2024 11:59 PM [facility] Hospital Encounter [address] [address] Loree Murray NP Discharge Disposition: Home or Self Care (Routine Discharge) 04/30/2024 10:20 AM CORN SHUCKER Laboratory Only [address] [phone] Loree Murray NP 04/30/2024 9:40 AM CORN [facility]UCKER Office Visit [address] [phone] Loree Murray NP Constipation (Patient having issues with bowels for a week now. Patient states she has irritation ) 04/30/2024 Travel 02/28/2024 10:25 AM CORN [facility]ER Laboratory Only [address] [address] Doc Castañeda MD 02/28/2024 Travel from Last 3 Months Immunizations Name Administration Dates Next Due Dtap ([facility]cel-Immune) 12/24/2003 Dtp (Generic) 01/31/1994,,06/04/1991,07/18/1990,1 1989 Hepatitis A (Havrix [address]) 05/16/2019,2013 Hepatitis A (Havrix [address]) 12/24/2003 Hepatitis B Pediatric 2000,04/24/2000,02/14 Influenza Adult (Generic) 05/16/2019,12/13/2016 MMR (MMRII) 01/31/1994,06/04/1991 Polio Opv (Generic) 01/31/1994,06/04/1991,1990,03/11/1990 Tdap (Generic) 05/16/2019 Social History Tobacco Use Types Packs/Day Years Used Date Smoking Tobacco: Never Smokeless Tobacco: Never Tobacco Cessation:Counseling Given: Not Answered Alcohol Use Standard Drinks/Week Comments Yes 0 (1 standard drink = 0.6 oz pur e alcohol) social PHQ-2 Answer Date Recorded Patient Health Questionnaire-2 Score 2 04/30/2024 Comments No Sex and Gender Information Value Date Recorded Sex Assigned at Not on file Legal Sex Female 10:23 PM CORN SHUCKER Gender Identity Not on file Sexual Orientation Not on file Last Filed Vital Signs Vital Sign Reading Time Taken Comments Blood Pressure 114/78 04/30/2024 9:39 AM CORN SHUCKER Pulse 85 04/30/2024 9:39 AM CORN SHUCKER Temperature 37.5 C (99.5 F) 04/30/2024 9:39 AM CORN SHUCKER Respiratory Rate 16 04/30/2024 9:39 AM CORN SHUCKER Oxygen Saturation 100% 04/30/2024 9:39 AM CORN SHUCKER Inhaled Oxygen Concentration - - Weight 55 kg (121 lb 3.2 oz) 04/30/2024 9:39 AM CORN SHUCKER Height 162.6 cm (5' 4 ) 04/30/2024 9:39 AM CORN SHUCKER Body Mass Index 20.8 04/30/2024 9:39 AM CORN SHUCKER Plan of Treatment Health Maintenance Due Date Last Done Comments Annual Physical 1992 Cervical Cancer Screening Pap with HPV Testing (Age 30 to 64) Every 5 Years 12/27/2019 COVID-19 Vaccine ( season) 2025 Postponed from 12/16/2023 (Patient Refused) Influenza Adult (#1) 2025 05/16/2019, 12/14/19 17 Postponed from 01/15/2024 (Patient Refused) Cervical Cancer Screening Pap Smear (Age 30 to 64) Every 3 Years 08/17/2025 08/17/2022 Cervical Cancer Screening with HPV 08/17/2025 DTaP, Tdap and Td Vaccines (7 - Td or Tdap) 05/16/2029 05/16/2019, 12/24/2003, 01/31/1994, Additional history exists Hepatitis B Vaccines Completed 2000, 04/24/2000, 02/28/2000 Hepatitis C Completed 04/30/2024 PHQ-2 (Physician [place]) Completed 04/30/2024 HPV Vaccines Aged Out No longer eligi ble based on patient's age to complete this topic Meningococcal B Vaccine Aged Out No l onger eligible based on patient's age to complete this topic Meningococcal Vaccine Aged Out No uriel mari eligible based on patient's age to complete this topic Pneumococcal Vaccine: Pediatrics (0 to 5 Years) and At-Risk Patients (6 to 64 Years) Aged Out No longer eligible based on patient's age to complete this topic RSV Immunizations Under 20 Months Aged Out No longer eligible based on patient's age to complete this topic Procedures Procedure Name Priority Date/Time Associated Diagnosis Comments COLLECTION VENOUS BLOOD VENIPUNCTURE Routine 04/30/2024 10:20 AM CORN SHUCKER Facial swelling Numbness and tingling in both hands Numbness and tingling of both lower extremities Elevated liver enzymes Encounter for hepatitis C screening test for low risk patient YAQUELIN IFA SCRN, WI REFLEX TO TITER Routine 04/30/2024 10:12 AM CORN SHUCKER Facial swelling Numbness and tingling in both hands Numbness and tingling of both lower extremities TSH W/REFLEX Routine 04/30/2024 10:12 AM CORN [facility]ER Facial swelling Numbness and tingling in both hands Numbness and tingling of both lower extremities CBC W/DIFF AUTOMATED Routine 04/30/2024 10:12 AM CORN [facility]ER Facial swelling Numbness and tingling in both hands Numbness and tingling of both lower extremities COMPREHENSIVE METABOLIC PANEL Routine 04/30/2024 10:12 AM [facility]N [facility]ER Facial swelling Numbness and tingling in both hands Numbness and tingling of both lower extremities Elevated liver enzymes HEMOGLOBIN, GLYCOSYLATED Routine 04/30/2024 10:12 AM [facility]N [facility]ER Facial swelling Numbness and tingling in both hands Numbness and tingling of both lower extremities VITAMIN D, 25 OH Routine 04/30/2024 10:1 2 AM CORN [facility]ER Facial swelling Numbness and tingling in both hands Numbness and tingling of both lower extremities VITAMIN B12 / FOLATE Routine 04/30/2024 10:12 AM CORN SHUCKER Facial swelling Numbness and tingling in both hands Numbness and tingling of both lower extremities IRON SAT PANEL (IRON,IBC,%SAT) Routine 04/30/2024 10:12 AM CORN SHUCKER Facial swelling Numbness and tingling in both hands Numbness and tingling of both lower extremities HEPATITIS C ANTIBODY Routine 04/30/2024 10:12 AM CORN SHUCKER Elevated liver enzymes Encounter for hepatitis C screening test for low risk patient VITAMIN D, 25 OH Routine 02/28/2024 10:2 2 AM CORN SHUCKER THYROID STIM HORMONE TSH Routine 02/28/2024 10:22 AM CORN SHUCKER HEMOGLOBIN, GLYCOSYLATED Routine 02/28/2024 10:22 AM CORN SHUCKER from Last 3 Months Results * (ABNORMAL) VITAMIN B12 / FOLATE (04/30/2024 10:12 AM CORN SHUCKER) VITAMIN B12 S/P/B 1,245(H) 193 - 986 PG/ML 04/30/2024 2:31 PM [facility]ER [facility] FOLATE 19.1 8.6 - 58.9 NG/ML 04/30/2024 2:31 PM [facility]ER [facility] 04/30/2024 10:1 2 AM CORN SHUCKER us Loree Murray NP LABORATORY Final Result [facility] [address] [place] [address], * YAQUELIN IFA SCREEN W/ REFLEX TITER ([facility] ONLY) (04/30/2024 10:12 AM CORN SHUCKER) YAQUELIN Negative Negative 05/05/2024 7:20 PM CORN SHUCKER [facility] Comment: YAQUELIN IFA is a first line screen for detecting the presence of up to approximately 150 autoantibodies in various autoimmune diseases. A negative YAQUELIN IFA result suggests YAQUELIN-associated autoimmune disease is not present at this time, but is not definitive. If there is high clinical suspicion for Sjogren's Syndrome, testing for anti-SS-A/Ro antibody should be considered. Anti-Daisy-1 antibody should be considered for clinically suspected inflammatory myopathies. AC-0: Negative International Consensus on YAQUELIN Patterns https://doi.org/10.1515/phlj-8283-1310 For additional information, please refer to http://education.[employer]/faq/AHI584 (This link is being provided for informational/ educational purposes only.) Test Performed by [employer] [employer] [place], [address] [place] [address] Donte Rodriguez M.D., Ph.D., Director of Laboratories , [facility] [id number] 04/30/2024 10:1 2 AM CORN SHUCKER Loree Murray NP LABORATORY Final Result Performing Organization Address City/[facility]/ZIP Co de Phone Number [employer] [address] , [place] [phone] * TSH W/REFLEX (04/30/2024 10:12 AM CORN SHUCKER) Pathologist [facility] TSH 0.888 0.358 - 3.74 uIU/ML 04/30/2024 1:52 PM CORN SHUCKER [facility] Comment: HIGH DOSES OF BIOTIN MAY INTERFERE WITH THIS TEST RESULT. CORRELATION TO CLINICAL HISTORY AND PRESENTATION RECOMMENDED. FREE T4 NOT INDICATED 04/30/2024 10:1 2 AM CORN SHUCKER Loree Murray NP LABORATORY Final Result [facility] [address] [place] [address], [place] [phone] * (ABNORMAL) HEMOGLOBIN, GLYCOSYLATED (04/30/2024 10:12 AM CORN SHUCKER) Only the most recent of2 resultswithin the time period is included. HGB A1C 5.7(H) <5.7 % 04/30/2024 2:00 PM [facility] SH[facility] Comment: INCREASED RISK OF DIABETES <5.7% NON-DIABETES 5.7-6.4% INCREASED RISK FOR FUTURE DIABETES > OR = 6.5 CONSISTENT WITH DIABETES STANDARDS OF MEDICAL CARE IN DIABETES-2010 DIABETES CARE, 33(SUPP 1): S1-S61,2010 ESTIMATED AVG GLUCOSE 117 mg/dL 04/30/2024 2:00 PM COR[facility] SHUCKER [facility] 04/30/2024 10:1 2 AM CORN SHUCKER us Loree Murray NP LABORATORY Final Result Performing Organization Address [facility]/ZIP Co de Phone Number [facility] [address] [place] [address], [place] [phone] * IRON SAT PANEL (IRON,IBC,%SAT) (04/30/2024 10:12 AM CORN SHUCKER) IRON 77 50 - 170 MCG/DL 04/30/2024 1:58 PM COR[facility]ER [facility] IRON BINDING CAPACITY 306 250 - 450 MCG/DL 04/30/2024 1:58 PM [facility] IRON SATURATION 25 20 - 55 % 1:58 PM [facility] 04/30/2024 10:1 2 AM COR[facility] SHUCKER us Loree Murray NP LABORATORY Final Result Performing Organization Address City/[facility]/ZIP Co de Phone Number [facility] [address] [place] [address], [place] [phone] * (ABNORMAL) COMPREHENSIVE METABOLIC PANEL (04/30/2024 10:12 AM CORN SHUCKER) GLUCOSE 95 70 - 99 MG/DL 04/30/2024 1:52 PM [facility] BUN 9 7 - 18 MG/DL 04/30/2024 1:52 PM [facility] CREATININE S/P/B 0.85 0.55 - 1.02 MG/DL 04/30/2024 1:52 PM [facility] SODIUM S/P/B 140 136 - 145 MMOL/L 04/30/2024 1:52 PM [facility] POTASSIUM S/P/B 4.7 3.5 - 5.1 MMOL/L 04/30/2024 1:52 PM [facility] CHLORIDE S/P/B 103 100 - 108 MMOL/L 04/30/2024 1:52 PM [facility] CO2 30.1 21 - 32 MMOL/L 04/30/2024 1:52 PM [facility] CALCIUM S/P/B 9.5 8.5 - 10.1 MG/DL 04/30/2024 1:52 PM [facility] BILIRUBIN TOTAL S/P/B 0.4 0.2 - 1.2 MG/DL 04/30/2024 1:52 PM [facility] TOTAL PROTEIN S/P/B 6.8 6.4 - 8.2 G/DL 04/30/2024 1:52 PM [facility] ALBUMIN S/P/B 4.2 3.4 - 5.0 G/DL 04/30/2024 1:52 PM [facility] AST 12(L) 15 - 37 U/L 04/30/2024 1:52 PM [facility] ALT 16 14 - 55 U/L 04/30/2024 1:52 PM [facility] ALKALINE PHOSPHATASE S/P/B 44(L) 50 - 136 U/L 04/30/2024 1:52 PM [facility] ANION GAP 6.9 5 - 15 MMOL/L 04/30/2024 1:52 PM [facility] BUN CREATININE RATIO 10.6 6 - 26 04/30/2024 1:52 PM [facility] A/G RATIO 1.6 1.0 - 2.0 RATIO 04/30/2024 1:52 PM [facility] GFR ESTIMATE >90 >90 ML/MIN/1.7 3 M2 04/30/2024 1:52 PM [facility] Comment: NOTE: eGFR is not calculated for patients <18 years of age. This is an estimated GFR calculation using the new CKD EPI creatinine equation without race and so does not require a correction factor for race. This estimated GFR should not be used for calculating drug doses. 04/30/2024 10:1 2 AM CORN SHUCKER Loree Murray NP LABORATORY Final Result [facility] [address] [place] [address], [place] [phone] * HEPATITIS C AB ([facility] ONLY) (04/30/2024 10:12 AM CORN SHUCKER) HEPATITIS C AB NON-REACTI VE NON-REACTI VE 04/30/2024 9:29 PM [facility]N SH[facility]ER [facility] 04/30/2024 10:1 2 AM CORN SHUCKER Loree Murray NP LABORATORY Final Result [facility] [address] [place] [address], [place] [phone] * (ABNORMAL) CBC W/DIFF AUTOMATED (04/30/2024 10:12 AM CORN SHUCKER) WBC 3.93(L) 4.4 - 11.0 x10'3/uL 04/30/2024 1:25 PM [facility] RBC 4.26(L) 4.50 - 5.10 x10'6/uL 04/30/2024 1:25 PM [facility] HGB 11.7(L) 12.3 - 15.3 G/DL 04/30/2024 1:25 PM [facility] HCT 36.5 35.9 - 44.6 % 04/30/2024 1:25 PM [facility] MCV 85.7 80.0 - 96.0 FL 04/30/2024 1:25 PM [facility] MCH 27.5 25.3 - 30.9 PG 04/30/2024 1:25 PM [facility] MCHC 32.1 31.0 - 34.1 G/DL 04/30/2024 1:25 PM [facility] RDW 13.2 12.4 - 15.1 % 04/30/2024 1:25 PM [facility] PLT 276 151 - 353 x10'3/uL 04/30/2024 1:25 PM [facility] MPV 10.2 9.6 - 12.0 FL 04/30/2024 1:25 PM [facility] RBC MORPHOLOGY NORMAL 04/30/2024 1:25 PM [facility] PLT MORPH. NORMAL 04/30/2024 1:25 PM [facility] WBC MORPHOLOGY NORMAL 04/30/2024 1:25 PM [facility] LYMPHOCYTES % 45.5(H) 15.8 - 45.0 % 04/30/2024 1:25 PM [facility] NEUTROPHILS % 44.6 42.1 - 71.9 % 04/30/2024 1:25 PM [facility] MONOCYTES % 8.1 5.7 - 12.5 % 04/30/2024 1:25 PM [facility] EOSINOPHILS 1.0 0.0 - 5.6 % 04/30/2024 1:25 PM [facility] BASOPHILS 0.5 0.0 - 1.3 % 04/30/2024 1:25 PM [facility] ABS. NEUTROPHILS 1.75 1.40 - 6.00 x10'3/uL 04/30/2024 1:25 PM [facility] IMMATURE GRANS % 0.3 0.0 - 0.5 % 04/30/2024 1:25 PM [facility] ABS. LYMPHOCYTES 1.79 0.80 - 4.70 x10'3/uL 04/30/2024 1:25 PM [facility] 04/30/2024 10:1 2 AM [facility]ER us Loree Murray NP LABORATORY Final Result [facility] [address] [place] [address], * VITAMIN D, 25 OH (04/30/2024 10:12 AM CORN [facility]UCKER) Only the most recent of2 resultswithin the time period is included. VITAMIN D 25 HYDROXY S/P/B 49 30 - 100 NG/ML 04/30/2024 2:05 PM [facility] Comment: INTERPRETATION DEFICIENT <20 INSUFFICIENT 20-29 SUFFICIENT 30-100 04/30/2024 10:1 2 AM CORN [facility]ER us Loree Murray NP LABORATORY Final Result Performing Organization Address City/[facility]/ZIP Co de Phone Number [facility] [address] [place] [address], * THYROID STIM HORMONE TSH (02/28/2024 10:22 AM CORN SHUCKER) TSH 1.707 0.358 - 3.74 uIU/ML 02/28/2024 11:32 AM [facility] Comment: HIGH DOSES OF BIOTIN MAY INTERFERE WITH THIS TEST RESULT. CORRELATION TO CLINICAL HISTORY AND PRESENTATION RECOMMENDED. 02/28/2024 10:2 2 AM CORN SHUCKER Doc Castañeda MD LABORATORY Final Result Performing Organization Address [facility] Co de Phone Number [facility] [address] [place] [address], from Last 3 Months Insurance Care Teams Division Human Resources Manager Relationship Specialty [place] [address] [address] [place] [address]. [place] [address] PCP - General Nurse Practitioner Family 11/22/23
--- OUTSIDE RECORDS SUMMARY | 2024-05-25 11:21 | XMS_ITS | Clinical Summary ---
Author Organization [facility] [address] Address [address] [place] [address] Care Team Providers Care Legal Document Assistant Name Role Phone Estelita Shepard DO Primary Care Provider [phone] Allergies Active Allergy Reactions Criticality Noted Date Comments Hydrocodone-Acetaminophen Nausea & Vomiting Low Medications diclofenac DR (VOLTAREN) 75 mg EC tablet Take 1 tablet (75 mg total) by mouth 2 (two) times a day as needed for pain Take with food. 20 tablet 12/30/19 Active Additional Information Patient not taking.Reported on 01/25/2023 tretinoin (RETIN-A) 0.05 % cream Apply a thin layer (pea-sized amount) at night. Start every other night and increase as tolerated 45 g 05/11/19 Active Additional Information Patient not taking.Reported on 01/25/2023 spironolactone (ALDACTONE) 50 mg tablet Take 1 tablet (50 mg total) by mouth daily With meal 30 tablet 05/11/19 23 Active Additional Information Patient not taking.Reported on 01/25/2023 ALPRAZolam (XANAX) 0.25 mg tablet Take 1 tablet (0.25 mg total) by mouth nightly as needed Active Loryna, 28, 3-0.02 mg per tablet TAKE 1 TABLET BY MOUTH ONCE DAILY WITH MEALS 11/01/19 23 Active FLUoxetine (PROzac) 20 mg capsule Take 45 mg by mouth daily 02/26/20 19 Active hydrOXYzine (ATARAX) 25 mg tablet Take 1 tablet (25 mg total) by mouth every 6 (six) hours as needed 02/25/20 19 Active lamoTRIgine (LaMICtal) 200 mg tablet Take 1 tablet (200 mg total) by mouth 2 (two) times a day Active nicotine polacrilex (NICORETTE) 2 mg gum Take 1 each (2 mg total) by mouth as needed 02/25/20 19 Active venlafaxine (EFFEXOR) 100 mg tablet Take 1.5 tablets (150 mg total) by mouth daily Active sucralfate (CARAFATE) 1 gram tablet TAKE 1 TABLET BY MOUTH EVERY 6 HOURS FOR 1 WEEK NEEDED FOR ABDOMINAL DISCOMFORT 01/24/[address] (PROTONIX) 40 mg EC tablet TAKE 1 TABLET BY MOUTH EVERY MORNING FOR 4 WEEKS 01/24/20 23 Active ondansetron ODT (ZOFRAN-ODT) 4 mg disintegrating tablet DISSOLVE 1 TABLET ON THE TONGUE EVERY 8 HOURS FOR 5 DAYS NEEDED FOR NAUSEA OR VOMITING 01/24/20 23 Active azithromycin (ZITHROMAX) 250 mg tablet Take 2 tabs (500 mg) by mouth today, than 1 tab (250 mg) daily for 4 days. 6 tablet 01/26/20 23 Active Active Problems No known active problems Social History Tobacco Use Types Packs/Day Years Used Date Smoking Tobacco: Every Day Smokeless Tobacco: Never Alcohol Use Standard Drinks/Week Comments Yes 0 (1 standard drink = 0.6 oz pur e alcohol) Personal Safety Answer Date Recorded Getting School Help Needed Not on file 11/08 Comments Unknown Sex and Gender Information Value Date Recorded Sex Assigned at Not on file Legal Sex Female 4:38 PM [employer] Gender Identity Not on file Sexual Orientation Not on file Obstetrics History Last Filed Vital Signs Vital Sign Reading Time Taken Comments Blood Pressure 134/82 01/25/2023 5:15 PM CDT Pulse 89 01/25/2023 5:15 PM CDT Temperature 37.3 C (99.2 F) 01/25/2023 5:15 PM CDT Respiratory Rate 16 01/25/2023 5:15 PM CDT Oxygen Saturation 99% 01/25/2023 5:15 PM CDT Inhaled Oxygen Concentration - - Weight 52.6 kg (116 lb) 01/25/2023 5:15 PM CDT Height 162.6 cm (5' 4 ) 01/25/2023 5:15 PM CDT Body Mass Index 19.91 01/25/2023 5:15 PM CDT Plan of Treatment Health Maintenance Due Date Last Done Comments Cervical Cancer Screening 1989 Depression Screening 1989 Hepatitis C Screening 1989 Pneumococcal vaccine <65 (1 of 2 - PCV) 12/27/1995 Varicella Vaccines (1 of 2 - 13+ 2-dose series) 2002 Regular Well Visit/Exam 18-64 12/27/2007 Covid-19 Vaccine (3 - 2023- season) 2023 05/13/2020, 04/26/2020 Influenza Vaccine (#1) 2023 05/16/2019, 2016 DTaP/Tdap/Td Vaccine (7 - Td or Tdap) 05/16/2029 05/16/2019, 12/24/2003, 01/31/1994, Additional history exists HPV Vaccines Aged Out No longer eligi ble based on patient's age to complete this topic Insurance [facility] [facility] Care Teams Legal Document Assistant Relationship Specialty Start Date End Date Estelita Shepard DO [facility] [place] [address] PCP - General Family Medicine 01/25/23
--- OUTSIDE RECORDS SUMMARY | 2024-05-25 11:21 | XMS_ITS | Clinical Summary ---
Author Organization [facility] Address [address] [place] [address] Care Team Providers Care Order Selector Name Role Phone Unavailable Primary Care Provider Unavailabl e Source Comments [facility],non-owned Affiliates and Associated Physician Practices is amultiple site organization consisting of ambulatory clinics and hospital sitesin [place], [place], [place] and [place]. This disclosure is being madepursuant to the Care Everywhere program and may not contain all information available regarding this patient. Last updated 18.[employer] [facility] Allergies No known active allergies Medications * [...] Mass Index 22.68 01/05/2021 8:35 AM CDT Plan of Treatment Health Maintenance Due Date Last Done Comments PAP SMEAR 1989 HIV SCREENING 2004 HEPATITIS C SCREENING 12/22/2007 DTAP/TDAP/TD VACCINES (1 - Tdap) 2008 HEPATITIS B VACCINE (1 of 3 - 19+ 3-dose series) 2008 COVID-19 VACCINE ( - 2023-2 5 season) 2023 INFLUENZA VACCINE (#1) 2023 DEPRESSION SCREENING 04/16/2024 ZOSTER VACCINE (1 of 2) 12/27/2039 HIB VACCINE Aged Out No longer eligi ble based on patient's age to complete this topic HPV VACCINE Aged Out No longer eligi ble based on patient's age to complete this topic MENINGOCOCCAL (Group B) VACCINE Aged Out No longer eligible based on patient's age to complete this topic MENINGOCOCCAL VACCINE Aged Out No uriel mari eligible based on patient's age to complete this topic PNEUMOCOCCAL VACCINE Aged Out No long er eligible based on patient's age to complete this topic Advance Directives * Full Code (Latest Code Status on File) Date Activated Date Inactivated Comments 02/21/2019 10:25 PM 02/25/2019 11:36 AM
--- OUTSIDE RECORDS SUMMARY | 2024-05-25 11:21 | XMS_ITS | Patient Health Summary ---
Author Organization [facility] Address [address] [place] [address] Care Team Providers Care Lining Closer Name Role Phone Unavailable Primary Care Provider Unavailabl e Note from [facility],non-owned Affiliates and Associated Physician Practices is amultiple site organization consisting of ambulatory clinics and hospital sitesin [place], [place], [place] and [place]. This disclosure is being madepursuant to the Care Everywhere program and may not contain all information available regarding this patient. Last updated 18.[facility] Allergies No known active allergies Medications * Be aware that medications may not be up to date on this document. Alwaysverify current medications with the patient. * FLUoxetine (PROZAC) 20 MG capsule(Started 02/25/2019) Take 1 capsule by mouth once daily Reasons: Major Depressive Disorder 1 refill remaining * hydrOXYzine hcl (ATARAX) 25 MG tablet(Started 02/24/2019) Take 1 tablet by mouth every 6 hours as needed for Itching Reasons: Feeling Anxious 1 refill remaining * nicotine polacrilex (NICORETTE) 2 MG gum(Started 02/24/2019) Take 1 Each by mouth as needed for Smoking Cessation - Gum should be slowly chewed until a peppery taste emerges, then parked between cheek and gum to facilitate nicotine absorption. - Avoid eating or drinking for 15 minutes before and during chewing gum. Reasons: Nicotine Addiction 1 refill remaining * venlafaxine (EFFEXOR) 100 MG tablet Take 150 mg by mouth once daily * lamoTRIgine (LAMICTAL) 200 MG tablet Take 200 mg by mouth 2 times daily Active Problems Problem Noted Date Diagnosed Date [...] Mass Index 22.68 01/05/2021 8:35 AM CDT Procedures * CULTURE BLOOD(Performed 01/05/2021) * CULTURE BLOOD(Performed 01/05/2021) * HCG BETA BLOOD QUANTITATIVE(Performed 01/05/2021) * COMPREHENSIVE METABOLIC PANEL(Performed 01/05/2021) * CBC W AUTO DIFFERENTIAL(Performed 01/05/2021) * POTASSIUM BLOOD(Performed 02/22/2019) * HEMOGLOBIN A1C(Performed 02/22/2019) * TSH(Performed 02/22/2019) * POTASSIUM BLOOD(Performed 02/21/2019) * EKG 12-LEAD(Performed 02/21/2019) Performed for Encounter for person awaiting admission to psychiatric care setting * HCG URINE QUAL POCT NOTIFICATION(Performed 02/21/2019) * HCG BETA BLOOD QUANTITATIVE(Performed 02/21/2019) * TSH(Performed 02/21/2019) * COMPREHENSIVE METABOLIC PANEL(Performed 02/21/2019) * CBC W AUTO DIFFERENTIAL(Performed 02/21/2019) * URINE MICROSCOPIC ONLY REFLEX TO CULTURE(Performed 02/21/2019) * URINALYSIS REFLEX MICROSCOPIC REFLEX CULTURE(Performed 02/21/2019) * URINE DRUG SCREEN IMMUNOASSAY(Performed 02/21/2019) * HCG URINE QUALITATIVE - POCT (IP) INTERFACED(Performed 02/21/2019) * HCG URINE QUALITATIVE - POINT OF CARE(Performed 12/09/2008) * COMPREHENSIVE METABOLIC PANEL(Performed 12/09/2008) Performed for Dysfunctional Uterine Bleeding * CBC W AUTO DIFFERENTIAL(Performed 12/09/2008) Performed for Dysfunctional Uterine Bleeding Results * CULTURE BLOOD (01/05/2021 9:36 AM CDT) Only the most recent of2 resultswithin the time period is included. Pathologist [facility] Culture No growth day 5 [place] 01/10/2021 6:08 PM CDT [facility] Blood PERIPHERAL BLOOD / Unknown Venipuncture / Unknown 01/05/2021 9:36 AM CDT 01/05/2021 10:25 AM CDT Artie Youngblood PA-C LAB - MICR OBIOLOGY ORDERABLES [facility] [address] [place], [place] [address], [facility] [phone] * (ABNORMAL) CBC W AUTO DIFFERENTIAL (01/05/2021 9:21 AM CDT) Only the most recent of3 resultswithin the time period is included. Pathologist [facility] WBC 11.5(H) 3.5 - 10.5 10 3/uL 01/05/2021 10:36 AM [facility] RBC 4.44 3.80 - 5.20 10 6/uL 01/05/2021 10:36 [address] [facility] Hemoglobin 12.2 12.0 - 15.6 g/dL 01/05/2021 10:36 AM [facility] Hematocrit 38.8 35.0 - 45.0 % 01/05/2021 10:36 AM [facility] MCV 87.4 80.7 - 98.3 fL 01/05/2021 10:36 AM [facility] MCH 27.5 26.7 - 34.0 pg 01/05/2021 10:36 AM [facility] MCHC 31.4 30.8 - 35.9 g/dL 01/05/2021 10:36 AM [facility] Platelet Count 326 150 - 400 10 3/uL 01/05/2021 10:36 AM [facility] RDW-SD 44.9 36.0 - 50.0 fL 01/05/2021 10:36 AM [facility] RDW-CV 14.0 11.2 - 14.8 % 01/05/2021 10:36 AM [facility] MPV 10.2 9.4 - 12.9 fL 01/05/2021 10:36 AM [facility] nRBC Absolute 0.00 0 10 3/uL 01/05/2021 10:36 AM [facility] nRBC Auto 0.0 0 /100 WBC 01/05/2021 10:36 AM [facility] Neutrophils % 77.2(H) 35.0 - 70.0 % 01/05/2021 10:36 AM [facility] Lymphocytes % 14.2(L) 20.0 - 43.0 % 01/05/2021 10:36 AM [facility] Monocytes % 7.2 5.0 - 13.0 % 01/05/2021 10:36 AM [facility] Eosinophils % 0.8 0.0 - 6.0 % 01/05/2021 10:36 AM [facility] Basophil % 0.3 0.0 - 2.0 % 01/05/2021 10:36 AM [facility] Neutrophils Absolute 8.9(H) 1.6 - 7.0 10 3/uL 01/05/2021 10:36 AM [facility] Lymphocyte Absolute 1.6 1.1 - 3.9 10 3/uL 01/05/2021 10:36 AM [facility] Monocytes Absolute 0.83 0.26 - 1.07 10 3/uL 01/05/2021 10:36 AM [facility] Eosinophils Absolute 0.09 0.00 - 0.47 10 3/uL 01/05/2021 10:36 AM [facility] Basophils Absolute 0.04 0.00 - 0.08 10 3/uL 01/05/2021 10:36 AM [facility] Immature Granulocytes % 0.3 0.0 - 1.0 % 01/05/2021 10:36 AM [facility] Immature Granulocytes Absolute 0.04 01/05/2021 10:36 AM [facility] Blood BLOOD SPECIMEN / Unknown Venipuncture / Unknown 01/05/2021 9:21 AM CDT 01/05/2021 10:27 AM CDT Artie Youngblood PA-C LAB - THELMA TOLOGY ORDERABLES Performing Organization Address City/[facility]/ZIP Co de Phone Number [facility] [address] [place] [address], [facility] [phone] * (ABNORMAL) COMPREHENSIVE METABOLIC PANEL (01/05/2021 9:21 AM [facility]) Only the most recent of3 resultswithin the time period is included. BUN 16 7 - 26 mg/dL 01/05/2021 10:53 AM [facility] Creatinine 0.78 0.56 - 0.96 mg/dL 01/05/2021 10:53 AM [facility] Sodium 144 136 - 145 mmol/L 01/05/2021 10:53 AM [facility] Potassium 3.9 3.5 - 4.5 mmol/L 01/05/2021 10:53 AM [facility] Chloride 104 98 - 107 mmol/L 01/05/2021 10:53 AM [facility] CO2 27 22 - 29 mmol/L 01/05/2021 10:53 AM [facility] Glucose 65(L) 70 - 115 mg/dL 01/05/2021 10:53 AM [facility] Calcium 9.5 8.4 - 10.2 mg/dL 01/05/2021 10:53 AM [facility] Protein Total 7.6 6.0 - 8.3 g/dL 01/05/2021 10:53 AM [facility] Albumin 3.8 3.4 - 5.0 g/dL 01/05/2021 10:53 AM [facility] Bilirubin Total 0.4 0.2 - 1.2 mg/dL 01/05/2021 10:53 AM [facility] Alkaline Phosphatase 200(H) 40 - 150 U/L 01/05/2021 10:53 AM [facility] ALT 510(H) 5 - 55 U/L 01/05/2021 10:53 AM [facility] AST 180(H) 5 - 34 U/L 01/05/2021 10:53 AM [facility] Anion Gap 17 8 - 18 01/05/2021 10:53 AM [facility] BUN/Creatinine Ratio 21 7 - 23 01/05/2021 10:53 AM [facility] Osmolality Calculated 297 270 - 300 mOsm/kg 01/05/2021 10:53 AM [facility] Albumin/Globulin Ratio 1.0(L) 1.1 - 2.3 01/05/2021 10:53 AM [facility] eGFR by CKD-EPI >90 >=90 mL/min/1.7 3 m2 01/05/2021 10:53 AM [facility] Blood BLOOD SPECIMEN / Unknown Venipuncture / Unknown 01/05/2021 9:21 AM CDT 01/05/2021 10:27 AM CDT Artie Youngblood PA-C LAB - CHEM ISTRY ORDERABLES [facility] [address] [place] [id number], [facility] [phone] * HCG BETA BLOOD QUANTITATIVE (01/05/2021 9:21 AM T) Only the most recent of2 resultswithin the time period is included. Beta-hCG Total Quantitative <3 <5 mIU/mL 01/05/2021 2:32 PM [facility] Comment: This assay is cleared for use in the early detection of only. It is not approved for any other uses such as tumor marker screening, tumor marker monitoring, etc. and should not be used for any other purposes. HCG Numeric Result Interpretation: Non- Females: < 5 mIU/mL Post-Menopausal Females: < 7 mIU/mL Blood BLOOD SPECIMEN / Unknown Venipuncture / Unknown 01/05/2021 9:21 AM CDT 01/05/2021 2:02 PM CDT Monster Everett MD LAB - CHEMISTRY VINNY [facility] [place] Organization Address City/State/ZIP Co de Phone Number [facility] [address] [place] [id number], [facility] [phone] * HEMOGLOBIN A1C (02/22/2019 6:57 AM [employer]) Hemoglobin A1c 5.1 4.0 - 6.1 % 02/22/2019 10:26 AM [facility] Estimated Average Glucose 100 mg/dL 02/22/2019 10:26 AM [facility] Blood BLOOD SPECIMEN / Unknown Venipuncture / Unknown 02/22/2019 6:57 AM [employer] 02/22/2019 8:16 AM [employer] Narrative [facility] - 02/22/2019 10:26 AM [facility] The following cutoff levels are recommended by [place] [employer]. A1c > 6.5% : considered as diabetes if two separate tests >6.5% or in an appropriate clinical setting. A1c 5.7% - 6.4% : considered as prediabetes (suggest increased risk for diabetes and cardiovascular disease) Control target level: Should be individualized. < 7 for general (non-) , < 8% less stringent goal, < 6.5 more stringent goal. Hemoglobin A1c measurements are used as an aid in the diagnosis of diabetic mellitus, as an aid to identify patients who may be at the risk for developing diabetic mellitus, and for the monitoring long-term blood glucose control in individuals with diabetes mellitus. This test should not replace glucose testing for patients with Type 1 diabetes, pediatric patients, or women. Falsely low HbA1c results may be observed in patients with clinical conditions that shorten erythrocyte life span or decrease mean erythrocyte age such as the presence of unstable hemoglobin variants, elevated hemoglobin F level or other causes of hemolytic anemia . HbA1c may not accurately reflect glycemic control when clinical conditions that affect erythrocyte survival are present. Severe Iron deficiency anemia may yield falsely high results. Hemoglobin A1c assay should not be used to diagnose or monitor diabetes in patients with malignancy, recent blood transfusion, chronic kidney or liver disease. This method may yield falsely low results when hemoglobin (HbF) exceeds 5% in the specimen. Colleen Morgan LOCKSTITCH BACK MAKER-SOLAR PROCESS ENGINEER LAB - CHEMISTRY ORDERABLES Performing Organization Address [facility] Co de Phone Number [facility] [address] [place] [address] * POTASSIUM BLOOD (02/22/2019 6:57 AM [employer]) Only the most recent of2 resultswithin the time period is included. Potassium 4.7 3.5 - 4.7 mmol/L 02/22/2019 10:16 AM [employer] [facility] Blood BLOOD SPECIMEN / Unknown Venipuncture / Unknown 02/22/2019 6:57 AM [employer] 02/22/2019 8:13 AM [employer] Jin Eisenberg MD LAB - CHEMISTRY ORDE VINCENT Performing Organization Address [facility] Co de Phone Number [facility] [address] [place] [address] * TSH (02/22/2019 6:57 AM [employer]) Only the most recent of2 resultswithin the time period is included. TSH 1.0611 0.35 - 4.94 uIU/mL 02/22/2019 10:45 AM [employer] [facility] Blood BLOOD SPECIMEN / Unknown Venipuncture / Unknown 02/22/2019 6:57 AM [employer] 02/22/2019 8:13 AM [employer] Colleen Morgan LOCKSTITCH BACK MAKER-SOLAR PROCESS ENGINEER LAB - CHEMISTRY ORDERABLES Performing Organization Address [facility] Co de Phone Number [facility] [address] [place] [address] * EKG 12-LEAD (02/21/2019 3:54 PM [employer]) Ventricular Rate 63 BPM [facility] Atrial Rate 63 BPM [facility] P-R Interval 148 ms [facility] QRS Duration ms 82 ms [facility] Q-T Interval ms 384 ms [facility] QTC Calculation (Bezet) 392 ms [facility] Calculated P [place] 47 degrees [facility] Calculated R [place] 13 degrees [facility] Calculated T [place] 54 degrees [facility] Interpretation EKG Sinus rhythm with Premature atrial complexes Otherwise normal ECG No previous ECGs available Confirmed by HEMANT JIMÉNEZ ([id number]) on 02/22/2019 1:27:34 PM [facility] 02/21/2019 3:54 PM [employer] 02/22/2019 1:27 PM [employer] Anil Salud MCGREGORN-SOLAR PROCESS ENGINEER ECG ORDERABLES Performing Organization Address [facility] Co de Phone Number [facility] * HCG URINE QUAL POCT NOTIFICATION (02/21/2019 2:30 PM [employer]) Comment Notification Label Only - See Separate Report 02/21/2019 2:30 PM [employer] [facility] Urine URINE / Unknown 9 1:29 PM [employer] Anil Salud MCGREGORN-SOLAR PROCESS ENGINEER LAB - URINALYSIS OR DERABLES Performing Organization Address [facility] Co de Phone Number [facility] [address] [address] * (ABNORMAL) URINE MICROSCOPIC ONLY REFLEX TO CULTURE (02/21/2019 2:00 PM [employer]) Reflex Status Culture not indicated 02/21/2019 2:20 PM [employer] [facility] RBC UA 0-2 None Seen, 0-2, 3-5 # /hpf 02/21/2019 2:20 PM [employer] [facility] WBC UA 0-5 None Seen, 0-5 # /hpf 02/21/2019 2:20 PM [employer] [facility] Bacteria UA Trace(A) None Seen 02/21/2019 2:20 PM [employer] [facility] Squamous Epithelial Cells -20(A) None Seen, 0-2, 3-5 /hpf 02/21/2019 2:20 PM [employer] [facility] Mucus UA 1+ /LPF 02/21/2019 2:20 PM [employer] [facility] Urine URINE SPECIMEN OBTAINED BY CLEAN CATCH PROCEDURE / Unknown Collection / Unknown 02/21/2019 2:00 PM [employer] 02/21/2019 2:06 PM [employer] Narrative [facility] - 02/21/2019 2:20 PM [employer] Anil Brannon LOCKSTITCH BACK MAKER-SOLAR PROCESS ENGINEER LAB - URINALYSIS OR DERABLES [facility] [address] [address] * (ABNORMAL) URINALYSIS REFLEX MICROSCOPIC REFLEX CULTURE (02/21/2019 2:00 PM [employer]) Color UA Straw Straw, Yellow 02/21/2019 2:11 PM [employer] [facility] Clarity UA Slt Cloudy(A) Clear 02/21/2019 2:11 PM [employer] [facility] Glucose UA Negative Negative 02/21/2019 2:11 PM [employer] [facility] Bilirubin UA Negative Negative 02/21/2019 2:11 PM [employer] [facility] Ketone UA Negative Negative 02/21/2019 2:11 PM [employer] [facility] Specific [place] UA 1.005 1.005 - 1.030 02/21/2019 2:11 PM [employer] [facility] Blood UA 1+(A) Negative 02/21/2019 2:11 PM [employer] [facility] pH UA 7.0 5.0 - 8.0 pH 02/21/2019 2:11 PM [employer] [facility] Protein UA Negative Negative 02/21/2019 2:11 PM [employer] [facility] Urobilinogen UA Negative Negative mg/dL 02/21/2019 2:11 PM [employer] [facility] Nitrite UA Negative Negative 02/21/2019 2:11 PM [employer] [facility] Leukocyte UA Negative Negative 02/21/2019 2:11 PM [employer] [facility] Urine Microscopy Urine microscopy to follow 02/21/2019 2:11 PM [employer] [facility] Reflex Status Culture not indicated 02/21/2019 2:11 PM [employer] [facility] Urine URINE SPECIMEN OBTAINED BY CLEAN CATCH PROCEDURE / Unknown Collection / Unknown 02/21/2019 2:00 PM [employer] 02/21/2019 2:06 PM [employer] Narrative [facility] - 02/21/2019 2:11 PM [employer] Anil Brannon LOCKSTITCH BACK MAKER-SOLAR PROCESS ENGINEER LAB - URINALYSIS OR DERABLES [facility] [address] [address] * (ABNORMAL) DRUG SCREEN TOX URINE PANEL (02/21/2019 2:00 PM [employer]) [facility] Amphetamines Screen Urine Not detected Not detected 02/21/2019 2:23 PM [employer] [facility] Barbiturates Screen Urine Not detected Not detected 02/21/2019 2:23 PM [employer] [facility] Benzodiazepines Screen Urine Not detected Not detected 02/21/2019 2:23 PM [employer] [facility] Cannabinoids Screen Urine Detected(A) Not detected 02/21/2019 2:23 PM [employer] [facility] Cocaine Screen Urine Not detected Not detected 02/21/2019 2:23 PM [employer] [facility] Methadone Screen Urine Not detected Not detected 02/21/2019 2:23 PM [employer] [facility] Opiate Screen Urine Not detected Not detected 02/21/2019 2:23 PM [employer] [facility] Phencyclidine Screen Urine Not detected Not detected 02/21/2019 2:23 PM [employer] [facility] Urine URINE / Unknown Collection / Unknown 02/21/2019 2:00 PM [employer] 02/21/2019 2:06 PM [employer] Narrative [facility] - 02/21/2019 2:23 PM [employer] This drug screen is designed for MEDICAL purposes only. It is not to be used for legal purposes, including but not limited to worker's comp, police investigations, occupational issues, child custody, etc. Any positive result is only presumptive and must be confirmed with a separate confirmatory test ordered by the physician. Drug Screening Test Cutoff Values: AMPHETAMINES 1000 ng/mL BARBITURATES 200 ng/mL BENZODIAZEPINES 200 ng/mL CANNABINOIDS(THC) 50 ng/mL COCAINE 300 ng/mL METHADONE 300 ng/mL OPIATES 300 ng/mL PHENCYCLIDINE(PCP)25 ng/mL Anil Brannon LOCKSTITCH BACK MAKER-SOLAR PROCESS ENGINEER LAB - URINE CIGAR WRAPPER RY ORDERABLES [facility] [address] [address] * (ABNORMAL) HCG URINE QUALITATIVE - POCT (IP) INTERFACED (02/21/2019 1:57 PM [employer]) HCG Qual Urine Positive(A ) Negative 02/21/2019 2:03 PM [employer] [facility] Urine URINE / Unknown 02/21/2019 1 :57 PM [employer] 02/21/2019 2:03 PM [employer] Provider Unknown LAB - POINT OF CARE ORDERABLES Performing Organization Address City/[facility]/ZIP Co de Phone Number [facility] [address] [address] * HCG URINE QUALITATIVE - POINT OF CARE (12/09/2008 8:10 AM CDT) HCG Qual Urine negative Negative [facility] POCT TESTING QC Verified yes Yes [facility] POC T TESTING Urine specimen (specimen) URINE / Unknown 12/09/2008 8:10 AM CDT Pravin Gandhi DO LAB - POINT OF CAR E ORDERABLES [facility] [address] [place] [id number]
--- OUTSIDE RECORDS SUMMARY | 2024-05-25 11:21 | XMS_ITS | Clinical Summary ---
Author Organization [facility] Address [address], [facility] [place] [address] Phone Care Team Providers Care Crew Director Name Role Phone Loree Murray APRN, DIRECTOR QUALITY SYSTEMS Primary Care Provide r Salud Cano MD Unavailable Allergies Active Allergy Reactions Criticality Noted Date Comments Hydrocodone-Acetaminophen Other (see Comments) Low 12/30/2019 Medications QUEtiapine (SEROquel) 100 MG Tablet take 1 tablet by mouth every night at bedtime Active Active Problems No known active problems Encounters Date Type Department Care Team Description 05/21/2024 1:40 PM SHEET METAL JOURNEYMAN Lab [facility] [address] [phone] Lab, [facility] Iron deficiency anemia, unspecified iron deficiency anemia type 05/21/2024 12:45 PM SHEET METAL JOURNEYMAN Office Visit [facility] [address] [address] Molina Gunderson MD Iron deficiency anemia, unspecified iron deficiency anemia type (Primary Dx) 05/21/2024 Travel from Last 3 Months Social History Tobacco Use Types Packs/Day Years Used Date Smoking Tobacco: Former Cigarettes Q uit: 2021 Smokeless Tobacco: Never Tobacco Cessation:Counseling Given: Yes Alcohol Use Standard Drinks/Week Comments Yes 0 (1 standard drink = 0.6 oz pur e alcohol) occasionally Comments Unknown Sex and Gender Information Value Date Recorded Sex Assigned at Not on file Legal Sex Female 11:10 AM SHEET METAL JOURNEYMAN Gender Identity Not on file Sexual Orientation Not on file Last Filed Vital Signs Vital Sign Reading Time Taken Comments Blood Pressure 126/90 05/21/2024 1:05 PM SHEET METAL JOURNEYMAN Pulse 78 05/21/2024 1:05 PM SHEET METAL JOURNEYMAN Temperature 36.8 C (98.2 F) 05/21/2024 1:05 PM SHEET METAL JOURNEYMAN Respiratory Rate 18 05/21/2024 1:05 PM SHEET METAL JOURNEYMAN Oxygen Saturation - - Inhaled Oxygen Concentration - - Weight 52.9 kg (116 lb 9.6 oz) 05/21/2024 1:05 P M SHEET METAL JOURNEYMAN Height 163.2 cm (5' 4.25 ) 05/21/2024 1:05 PM CS T Body Mass Index 19.86 05/21/2024 1:05 PM SHEET METAL JOURNEYMAN Plan of Treatment Upcoming Encounters Date Type Department Care Team (Late st Contact Info) Description 05/29/2024 9:15 AM SHEET METAL JOURNEYMAN Office Visit [facility] [place] [address] [address] Molina Gunderson MD [address] [place] [address] Health Maintenance Due Date Last Done Comments Pap Smear 2010 Cervical Cancer Screening (CCS) 12/27/2019 HPV/Cotest 12/27/2019 Influenza Immunization (#1) 12/16/202304/18, 12/13/2016 SARS-COV-2 Immunization ( season) 2023 Respiratory Syncytial Virus (RSV) Immunization (Adult) (1 - 1-dose 75+ series) 2064 Hepatitis B Immunization Completed 001, 04/24/2000, 02/28/2000 TdaP Immunization Completed 05/16/2019 Hepatitis C Virus (HCV) Screening Completed 04/30/2024 Meningococcal Immunization (ACWY) Aged Out No longer eligible b ased on patient's age to complete this topic Pneumococcal Immunization Combined Aged Out No longer eligible b ased on patient's age to complete this topic Rotavirus Immunization Aged Out No lo nger eligible based on patient's age to complete this topic Procedures Procedure Name Priority Date/Time Associated Diagnosis Comments SERUM FREE LIGHT CHAINS, OH Routine 05/21/2024 1:50 PM SHEET METAL JOURNEYMAN CBC WITH AUTO DIFF OH Routine 05/21/2024 1:50 PM SHEET METAL JOURNEYMAN CMP (COMPREHENSIVE METABOLIC PANEL) Routine 05/21/2024 1:50 PM SHEET METAL JOURNEYMAN Iron deficiency anemia, unspecified iron deficiency anemia type LACTATE DEHYDROGENASE (LD) Routine 05/21/2024 1:50 PM SHEET METAL JOURNEYMAN Iron deficiency anemia, unspecified iron deficiency anemia type ELECTROPHORESIS W/ TOTAL PROTEIN SERUM Routine 05/21/2024 1:50 PM SHEET METAL JOURNEYMAN Iron deficiency anemia, unspecified iron deficiency anemia type IMMUNOFIXATION, SERUM OH Routine 05/21/2024 1:50 PM SHEET METAL JOURNEYMAN Iron deficiency anemia, unspecified iron deficiency anemia type IMMUNOGLOBULIN IGA, IGG & IGM QUANT Routine 05/21/2024 1:50 PM SHEET METAL JOURNEYMAN Iron deficiency anemia, unspecified iron deficiency anemia type VITAMIN B12 Routine 05/21/2024 1:50 PM SHEET METAL JOURNEYMAN Iron deficiency anemia, unspecified iron deficiency anemia type FOLIC ACID (FOLATE) Routine 05/21/2024 1 :50 PM SHEET METAL JOURNEYMAN Iron deficiency anemia, unspecified iron deficiency anemia type RETICULOCYTE COUNT (RETIC) Routine 05/21/2024 1:50 PM SHEET METAL JOURNEYMAN Iron deficiency anemia, unspecified iron deficiency anemia type FERRITIN Routine 05/21/2024 1:50 PM SHEET METAL JOURNEYMAN Iron deficiency anemia, unspecified iron deficiency anemia type IRON W/ IRON BINDING CAPACITY OH Routine 05/21/2024 1:50 PM SHEET METAL JOURNEYMAN Iron deficiency anemia, unspecified iron deficiency anemia type THYROID STIMULATING HORMONE (TSH) Routine 05/21/2024 1:50 PM SHEET METAL JOURNEYMAN Iron deficiency anemia, unspecified iron deficiency anemia type QUANTIFERON-TB GOLD PLUS Routine 05/21/2024 1:50 PM SHEET METAL JOURNEYMAN Iron deficiency anemia, unspecified iron deficiency anemia type from Last 3 Months Results * QUANTIFERON-TB GOLD PLUS (05/21/2024 1:50 PM SHEET METAL JOURNEYMAN) QUANTIFERON INCUBATION OH INCUBATION PERFORMED. [facility] QUANTIFERON CRITERIA OH COMMENT [facility] [employer] [facility] Comment: QUANTIFERON-TB GOLD PLUS IS A QUALITATIVE INDIRECT TEST FOR M TUBERCULOSIS INFECTION (INCLUDING DISEASE) AND IS INTENDED FOR USE IN CONJUNCTION WITH RISK ASSESSMENT, RADIOGRAPHY, AND OTHER MEDICAL AND DIAGNOSTIC EVALUATIONS. THE QUANTIFERON-TB GOLD PLUS RESULT IS DETERMINED BY SUBTRACTING THE NIL VALUE FROM EITHER TB ANTIGEN (AG) VALUE. THE MITOGEN TUBE SERVES A CONTROL FOR THE TEST. QUANTIFERON TB1 AG VALUE OH 0.01 IU/ML [facility] QUANTIFERON TB2 AG VALUE OH 0.01 IU/ML [facility] QUANTIFERON NIL VALUE OH 0.01 IU/ML [facility] QUANTIFERON MITOGEN VALUE OH >10.00 IU/ML [facility] QUANTIFERON-TB GOLD PLUS OH NEGATIVE NEGATIVE [facility] Comment: NO RESPONSE TO M TUBERCULOSIS ANTIGENS DETECTED. INFECTION WITH M TUBERCULOSIS IS UNLIKELY, BUT HIGH RISK INDIVIDUALS SHOULD BE CONSIDERED FOR ADDITIONAL TESTING (ATS/IDSA/CDC CLINICAL PRACTICE GUIDELINES, 2017). THE REFERENCE RANGE IS AN ANTIGEN MINUS NIL RESULT OF <0.35 IU/ML. CHEMILUMINESCENCE IMMUNOASSAY METHODOLOGY Blood 05/21/2024 1:50 PM SHEET METAL JOURNEYMAN Narrative [facility] - 05/23/2024 8:16 PM SHEET METAL JOURNEYMAN TESTING PERFORMED AT: [] [facility], [address] [place] [address], [place], [address], PHONE: [phone], HEATER MECHANIC: JOSE J VICK, PHD Release to patient->Immediate Molina Gunderson MD IMMUNOLOGY ORDERABLES Final Result [facility] [employer] [facility] [place] [address], * SERUM FREE LIGHT CHAINS, [place] (05/21/2024 1:50 PM SHEET METAL JOURNEYMAN) Pathologist [facility] FREE KAPPA LT CHAINS 15.2 2.9 - 20.7 mg/L [facility] [employer] [facility] FREE LAMBDA LT CHAINS 11.0 4.2 - 27.6 mg/L [facility] [employer] [facility] KAPPA/LAMBDA RATIO 1.38 0.22 - 1.74 [facility] [employer] [facility] 05/21/2024 1:50 PM SHEET METAL JOURNEYMAN us Molina Gunderson MD LAB SEND OUTS Final Resul t [facility] [employer] [facility] [place] [address], [place] [phone] * IRON W/ IRON BINDING CAPACITY OH (05/21/2024 1:50 PM SHEET METAL JOURNEYMAN) [facility] IRON 87 50 - 212 ug/dL [facility] [employer] [facility] UIBC 292 155 - 355 ug/dL [facility] [employer] [facility] TIBC 379 261 - 478 ug/dl [facility] [employer] [facility] % Saturation 23 20 - 50 % [facility] [employer] [facility] 05/21/2024 1:50 PM SHEET METAL JOURNEYMAN Narrative [facility] [employer] [facility] - 05/21/2024 2:32 PM SHEET METAL JOURNEYMAN Release to patient->Immediate us Molina Gunderson MD LAB SEND OUTS Final Resul t [facility] [employer] [facility] [place] [address], [place] [phone] * IMMUNOFIXATION, SERUM [place] (05/21/2024 1:50 PM SHEET METAL JOURNEYMAN) Pathologist [facility] IMMUNOFIXATION RESULT, SERUM COMMENT [facility] [employer] [facility] Comment:NO MONOCLONALITY DET ECTED. 05/21/2024 1:50 PM SHEET METAL JOURNEYMAN Narrative [facility] [employer] [facility] - 05/23/2024 8:16 PM SHEET METAL JOURNEYMAN TESTING PERFORMED AT: [] [facility] [place], [address] [facility], [place], [address], PHONE: [phone], HEATER MECHANIC: JOSE J VICK, PHD Release to patient->Immediate us Molina Gunderson MD LAB SEND OUTS Final Resul t [facility] [employer] [facility] [place] [address], * (ABNORMAL) CBC WITH AUTO DIFF OH (05/21/2024 1:50 PM SHEET METAL JOURNEYMAN) WBC 4.8 4.0 - 10.0 10*3/uL [facility] [employer] [facility] HGB 13.3 11.2 - 15.7 g/dL [facility] [employer] [facility] HCT 40.8 34.1 - 44.9 % [facility] [employer] [facility] PLT 274 163 - 369 10*3/uL [facility] [employer] [facility] MPV 9.3(L) 9.4 - 12.4 fL [facility] [employer] [facility] RBC 4.84 3.93 - 5.22 10*6/uL [facility] [employer] [facility] MCV 84 79 - 95 fL [facility] [employer] [facility] MCH 27.5 25.6 - 32.2 pg [facility] [employer] [facility] MCHC 32.6 32.2 - 36.5 g/dL [facility] [employer] [facility] RDW 13.2 11.6 - 14.4 % [facility] [employer] [facility] Neutrophils % 52.1 36.0 - 66.0 % [facility] [employer] [facility] Lymphocytes % 40.8(H) 19.0 - 40.0 % [facility] [employer] [facility] Monocytes % 5.7 4.1 - 12.1 % [facility] [employer] [facility] Eosinophils % 0.8 0.0 - 3.5 % [facility] [employer] [facility] Basophils % 0.4 0.0 - 1.0 % [facility] [employer] [facility] Absolute Neutrophils 2.5 1.4 - 6.6 10*3/uL [facility] [employer] [facility] Absolute Lymphocytes 1.9 0.8 - 4.0 10*3/uL [facility] [employer] [facility] Absolute Monocytes 0.3 0.2 - 1.2 10*3/uL [facility] [employer] [facility] Absolute Eosinophils 0.0 0.0 - 0.4 10*3/uL [facility] [employer] [facility] Absolute Basophils 0.0 0.0 - 0.1 10*3/uL [facility] [employer] [facility] 05/21/2024 1:50 PM SHEET METAL JOURNEYMAN us Molina Gunderson MD LAB SEND OUTS Final Resul t [facility] [employer] [facility] [place] [address], [place] [phone] * VITAMIN B12 (05/21/2024 1:50 PM SHEET METAL JOURNEYMAN) Vitamin B12 827 180 - 914 pg/mL [facility] [employer] [facility] Blood 05/21/2024 1:50 PM SHEET METAL JOURNEYMAN Narrative [facility] - 05/22/2024 3:47 PM SHEET METAL JOURNEYMAN Release to patient->Immediate us Molina Gunderson MD CHEMISTRY ORDERABLES Final Result Performing Organization Address [facility] Co de Phone Number [facility] [employer] [facility] [address] [place] [address], [place] [phone] * THYROID STIMULATING HORMONE (TSH) (05/21/2024 1:50 PM SHEET METAL JOURNEYMAN) TSH 1.09 0.45 - 5.33 uIU/mL [facility] [employer] [facility] Blood 05/21/2024 1:50 PM SHEET METAL JOURNEYMAN Narrative [facility] [employer] [facility] - 05/22/2024 3:47 PM SHEET METAL JOURNEYMAN Release to patient->Immediate us Molina Gunderson MD CHEMISTRY ORDERABLES Final Result Performing Organization Address City/[facility]/ZIP Co de Phone Number [facility] [employer] [facility] [address] [place] [address], * RETICULOCYTE COUNT (RETIC) (05/21/2024 1:50 PM SHEET METAL JOURNEYMAN) Pathologist [facility] Reticulocyte count 0.60 0.50 - 1.70 % [facility] [employer] [facility] RET-He 30.40 28.20 - 36.60 pg [facility] [employer] [facility] Comment: RET-He is a direct assessment of incorporation of iron into erythrocyte hemoglobin. It provides an indirect measure of the iron available for new erythropoiesis over past 2-4 days. Blood 05/21/2024 1:50 PM SHEET METAL JOURNEYMAN us Molina Gunderson MD HEMATOLOGY ORDERABLES Final Result Performing Organization Address City/[facility]/ZIP Co de Phone Number [facility] [employer] [facility] [address] [place] [address], [place] [phone] * (ABNORMAL) LACTATE DEHYDROGENASE (LD) (05/21/2024 1:50 PM SHEET METAL JOURNEYMAN) Pathologist [facility] LDH 103(L) 140 - 271 U/L [facility] [employer] [facility] Blood 05/21/2024 1:50 PM SHEET METAL JOURNEYMAN Narrative [facility] [facility] [facility] - 05/21/2024 2:32 PM SHEET METAL JOURNEYMAN Release to patient->Immediate us Molina Gunderson MD CHEMISTRY ORDERABLES Final Result [facility] [facility] [address] [place] [address], [place] [phone] * IMMUNOGLOBULIN IGA, IGG & IGM QUANT (05/21/2024 1:50 PM SHEET METAL JOURNEYMAN) IGG 1,171 635 - 1,741 mg/dL [facility] IGA 244 66 - 433 mg/dL [facility] [employer] [facility] IGM 145 45 - 281 mg/dL [facility] Blood 05/21/2024 1:50 PM SHEET METAL JOURNEYMAN Narrative [facility] [employer] [facility] - 05/22/2024 2:06 PM SHEET METAL JOURNEYMAN Release to patient->Immediate us Molina Gunderson MD CHEMISTRY ORDERABLES Final Result Performing Organization Address City/[facility]/ZIP Co de Phone Number [facility] [employer] [facility] [address] [place] [address], [place] [phone] * FOLIC ACID (FOLATE) (05/21/2024 1:50 PM SHEET METAL JOURNEYMAN) Folate >20.00 >=5.90 ng/mL [facility] [employer] [facility] Blood 05/21/2024 1:50 PM SHEET METAL JOURNEYMAN [facility] [facility] [facility] - 05/22/2024 3:47 PM SHEET METAL JOURNEYMAN Release to patient->Immediate IS THE PATIENT REQUIRED TO BE FASTING FOR 12 HOURS?->No us Molina Gunderson MD CHEMISTRY ORDERABLES Final Result Performing Organization Address City/[facility]/ZIP Co de Phone Number [facility] [employer] [facility] [address] [place] [address], [place] [phone] * FERRITIN (05/21/2024 1:50 PM SHEET METAL JOURNEYMAN) Ferritin 16 11 - 307 ng/mL [facility] Blood 05/21/2024 1:50 PM SHEET METAL JOURNEYMAN [facility] [employer] [facility] - 05/22/2024 3:47 PM SHEET METAL JOURNEYMAN Release to patient->Immediate us Molina Gunderson MD CHEMISTRY ORDERABLES Final Result Performing Organization Address City/[facility]/ZIP Co de Phone Number [facility] [employer] [facility] [place] [address] [address] [place] [address], [place] [phone] * ELECTROPHORESIS W/ TOTAL PROTEIN SERUM (05/21/2024 1:50 PM SHEET METAL JOURNEYMAN) PROTEIN, TOTAL, SERUM 7.5 6.0 - 8.5 G/DL [facility] [employer] [facility] ALBUMIN 4.0 2.9 - 4.4 G/DL [facility] TQCRG-3-QRWELVCK 0.3 0.0 - 0.4 G/DL [facility] [employer] [facility] [id number] 0.7 0.4 - 1.0 G/DL [facility] [employer] [facility] BETA GLOBULIN 1.1 0.7 - 1.3 G/DL [facility] [employer] [facility] GAMMA GLOBULIN 1.4 0.4 - 1.8 G/DL [facility] M-SPIKE NOT OBSERVED NOT OBSERVED G/DL [facility] [employer] [facility] GLOBULIN, TOTAL 3.5 2.2 - 3.9 G/DL [facility] A/G RATIO 1.1 0.7 - 1.7 [facility] PLEASE NOTE: COMMENT [facility] [employer] [facility] Comment: PROTEIN ELECTROPHORESIS SCAN WILL FOLLOW VIA COMPUTER, MAIL, OR WASTEWATER TREATMENT ENGINEER DELIVERY. PDF . [facility] TER [facility] Blood 05/21/2024 1:50 PM SHEET METAL JOURNEYMAN Narrative [facility] - 05/22/2024 3:08 PM SHEET METAL JOURNEYMAN TESTING PERFORMED AT: [] [facility], [address] [place] [address], [place], [address], PHONE: [phone], HEATER MECHANIC: JOSE J VICK, PHD Release to patient->Immediate Molina Gunderson MD CHEMISTRY ORDERABLES Final Result [facility] [employer] [facility] [place] [address], * (ABNORMAL) CMP (COMPREHENSIVE METABOLIC PANEL) (05/21/2024 1:50 PM SHEET METAL JOURNEYMAN) Glucose 84 70 - 105 mg/dL [facility] [employer] [facility] Blood Urea Nitrogen 12 7 - 25 mg/dL [facility] Creatinine 0.7 0.6 - 1.2 mg/dL [facility] Sodium 144 136 - 145 mEq/L [facility] Potassium 4.1 3.5 - 5.1 mEq/L [facility] Chloride 100 98 - 107 mEq/L [facility] Bicarbonate 26 21 - 31 mEq/L [facility] Total Bilirubin 0.6 0.3 - 1.0 mg/dL [facility] [employer] [facility] Alk. Phosphatase 36 34 - 104 U/L [facility] Aspartate Aminotransferase 13 13 - 39 U/L [facility] Alanine Aminotransferase 11 7 - 52 U/L [facility] Total Protein 7.8 6.4 - 8.9 g/dL [facility] Albumin 5.2 3.5 - 5.7 g/dL [facility] Calcium 10.3 8.6 - 10.3 mg/dL [facility] Anion Gap 22.1(H) 7.0 - 15.0 mEq/L [facility] Globulin 2.6 2.0 - 3.5 g/dL [facility] EGFR 116 >60 ml/min/1. 73m2 [facility] Comment: This eGFR is calculated using 2020 CKD-EPI Creatinine equation without race modifier based on the NKF-ASN task force recommendations Blood 05/21/2024 1:50 PM SHEET METAL JOURNEYMAN Narrative [facility] [employer] [facility] - 05/21/2024 2:32 PM SHEET METAL JOURNEYMAN Release to patient->Immediate IS THE PATIENT REQUIRED TO BE FASTING FOR 8 HOURS?->No Molina Gunderson MD CHEMISTRY ORDERABLES Final Result [facility] [employer] [facility] [place] [address], from Last 3 Months Insurance MEDICAID [employer] Care Teams Crew Director Relationship Specialty Start Date End Date Loree Murray APRN, DIRECTOR [employer] [address] [place] [address] PCP - General Advanced Practice Nurse 05/12/24 Salud Cano MD [address] [place] [address] Consulting Physician Oncology 05/15/24
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
--- OUTSIDE RECORDS SUMMARY | 2024-05-25 11:21 | XMS_ITS | Referral Summary ---
Author Organization [facility] [address] Address [address] [place] [address] Care Team Providers Care Poolroom/Poolhall Manager Name Role Phone Estelita Shepard DO Primary Care Provider [phone] Allergies Active Allergy Reactions Criticality Noted Date [...] and increase as tolerated 45 g 05/11/19 23 Active Additional Information Patient not [...] on file Legal Sex Female 4:38 PM [employer]CES OFFICER Gender Identity Not on file Sexual Orientation [...] 01/25/2023 5:15 PM CDT Plan of Treatment Not on file Insurance [facility] Care Teams Poolroom/Poolhall Manager Relationship Specialty Start Date End Date Estelita Shepard DO [address] [email or web address] [id number] PCP - General Family Medicine 01/25/23
[2024-05-25 12:13] VITALS: BP 118/69; PULSE 91; RESP 16; TEMP 38.2; O2SAT 99
--- NOTE | 2024-05-25 12:13 | PC.NURSE ---
INFORMED BY TECH THAT PT LEFT ROOM PRIOR TO TRIAGE OR BEING SEEN BY PROVIDER.
--- NOTE | 2024-05-25 14:15 | ED.GENADULT ---
HPI - General Adult General Stated complaint: cough/headache Related Data Home Medications ?Medication ?Instructions ?Recorded ?Confirmed ?Last Taken ?Type alprazolam 0.25 mg tablet (Xanax) 09/29/20 Unknown History fluoxetine 40 mg capsule (Prozac) mg 09/29/20 Unknown History lamotrigine 200 mg tablet 09/29/20 Unknown History (Lamictal) amoxicillin 875 mg-potassium 1 tablet BID 01/03/21 Unknown History clavulanate 125 mg tablet Allergies Allergy/AdvReac Type Severity Reaction Status Date / Time No Known Allergies Allergy Verified 01/03/21 10:36 [facility] Past Medical History Medical History (Updated 05/26/23 @ 00:01 by Milton Bain) Anxiety Surgical History Surgical History (Updated 09/29/20 @ 17:46 by He Coronado, PAShawnC) H/O breast augmentation Social History Social History (Updated 05/25/23 @ 12:29 by YESSI LiveC) Smoking status: Current every day smoker Tobacco type: e-cigarettes/vaping Substance use: current Substance use type: marijuana Course Vital Signs Vital signs: Vital Signs Temperature 38.2 C H 05/25/24 12:13 Pulse Rate 91 05/25/24 12:13 Respiratory Rate 16 05/25/24 12:13 Blood Pressure 118/69 05/25/24 12:13 Pulse Oximetry 99 05/25/24 12:13 Oxygen Delivery Room Air 05/25/24 12:13 Temperature 38.2 C H 05/25/24 12:13 Pulse Rate 91 05/25/24 12:13 Respiratory Rate 16 05/25/24 12:13 Blood Pressure 118/69 05/25/24 12:13 Pulse Oximetry 99 05/25/24 12:13 Oxygen Delivery Room Air 05/25/24 12:13 Medical Decision Making Vital Signs Vital Signs: Vital Signs Temperature 38.2 C H 05/25/24 12:13 Pulse Rate 91 05/25/24 12:13 Respiratory Rate 16 05/25/24 12:13 Blood Pressure 118/69 05/25/24 12:13 Pulse Oximetry 99 05/25/24 12:13 Oxygen Delivery Room Air 05/25/24 12:13 Temperature 38.2 C H 05/25/24 12:13 Pulse Rate 91 05/25/24 12:13 Respiratory Rate 16 05/25/24 12:13 Blood Pressure 118/69 05/25/24 12:13 Pulse Oximetry 99 05/25/24 12:13 Oxygen Delivery Room Air 05/25/24 12:13 Discharge Plan Discharge Patient Language: Faroese Prescriptions: No Action amoxicillin-pot clavulanate 875-125 mg Tablet 1 tablet BID clindamycin HCl 300 mg capsule 300 mg PO Q8H Qty: 30 0RF hydrocodone-acetaminophen 5-325 mg tablet 1 tablet PO Q4H PRN (Reason: pain) Qty: 15 0RF lidocaine HCl 2 % solution 5 ml mucous membrane TID PRN (Reason: pain) Qty: 100 0RF ibuprofen 600 mg tablet 600 mg PO TID PRN (Reason: pain) Qty: 30 0RF clindamycin HCl 300 mg capsule 300 mg PO Q8H Qty: 30 0RF lidocaine HCl 2 % solution 5 ml mucous membrane TID PRN (Reason: pain) Qty: 100 0RF ondansetron 4 mg tablet,disintegrating 4 mg PO Q8H PRN (Reason: nausea and vomiting) 5 Days Qty: 14 0RF sucralfate [Carafate] 1 gram tablet 1 g PO Q6H PRN (Reason: abdominal discomfort) 7 Days Qty: 30 0RF pantoprazole [Protonix] 40 mg tablet,delayed release (DR/EC) 40 mg PO QAM 28 Days Qty: 28 0RF albuterol sulfate [ProAir HFA] 90 mcg/actuation HFA aerosol inhaler 2 puff inhalation QID PRN (Reason: shortness of breath or wheezing) Qty: 8.5 0RF fluoxetine [Prozac] 40 mg Capsule lamotrigine [Lamictal] 200 mg Tablet alprazolam [Xanax] 0.25 mg Tablet ibuprofen [IBU] 600 mg tablet 600 mg PO TID PRN (Reason: fever or pain) Qty: 7 0RF Follow-up/Referrals: Terri,Loree Kay, DIE LAY OUT WORKER [Primary Care Provider] -
== END 2024-05-25 12:13 | disposition left against medical advice (07) ==
PROVIDERS: PCP Nurse Practitioner Family
DX: Z53.21 Procedure and treatment not carried out due to patient leaving prior to being seen by health care provider (principal)
CPT/HCPCS: 99199